=== PATIENT | male | born 1955 | race Caucasian/White ===

== ENCOUNTER → 2018-02-06 09:54 | Outpatient (CLI) | payer MEDICARE, SELFPAY ==
[2018-02-06 13:03] LABS: ALB/GLOB Ratio 1.1 RATIO (0.9-2.4); AST(SGOT) 37 U/L (15-37); Alanine Aminotransfer ALT/SGPT 36 U/L (16-61); Albumin, Serum 4.1 g/dL (3.2-5.0); Alkaline Phosphatase 85 U/L (45-117); Anion Gap 8 (5-15); BUN 19 mg/dL (7-18); Calcium,Total 8.9 mg/dL (8.5-10.1); Chloride 98 mmol/L (98-107); Creatinine, Serum 1.19 mg/dL (0.70-1.30); EST Glomerular Filtration Rate 65 mL/min (>60); Est Glom Filt Rate - Afr Amer 79 mL/min (>60); Globulin 3.6 g/dL (2.2-4.2); Glucose 94 mg/dL (74-106); Potassium 4.3 mmol/L (3.5-5.1); Protein, Total 7.7 g/dL (6.4-8.2); Sodium Level 137 mmol/L (136-145); Thyroid Stim Hormone (TSH) 0.62 uIU/mL (0.358-3.74)
[2018-02-06 13:08] LABS: Absolute Lymphocyte Count 1.45 X10^3/ul (0.83-4.51); Absolute Neutrophil Count 2.5 X10^3/uL (2.0-7.7); Basophil# 0.01 X10^3/uL; Basophil% 0.2 % (0-1); Eosinophil# 0.07 X10^3/uL; Eosinophils% 1.6 % (0-5); Hematocrit 43.5 % (40-54); Lymphocyte # 1.45 X10^3/ul (4.0); Lymphocyte % 33.3 % (19-41); Mean Corp Hgb Conc 32.2 g/gl (32-36); Mean Corpuscular Hgb 31.5 pg (27.0-32.0); Mean Corpuscular Volume 97.8 fL (80-94); Mean Platelet Vol. 9.7 fl (6.2-12.0); Monocyte# 0.35 X10^3/uL; Neutrophil # 2.47 X10^3/uL (2.7-7.7); Neutrophil % 56.7 % (47-70); Platelet Count 193 K/mm3 (150-450); RBC Distribution Width CV 12.2 % (11.6-14.6); RBC Distribution Width SD 43.3 fl (35.1-43.9); Red Blood Count 4.45 M/mm3 (4.6-6.2); White Blood Count 4.4 K/mm3 (4.4-11.0)
[2018-02-06 13:09] LABS: POSITIVE COUNT NO; POSITIVE DIFFERENTIAL NO; POSITIVE MORPHOLOGY NO
== END ==
PROVIDERS: Family Provider Family Medicine Geriatric Medicine; PCP Family Medicine Geriatric Medicine; Visit Provider Family Medicine Geriatric Medicine
DX: E11.9 Type 2 diabetes mellitus without complications (principal); I10 Essential (primary) hypertension
CPT/HCPCS: 36415; 80053; 84443; 85025

== ENCOUNTER → 2018-08-07 11:27 | Outpatient (CLI) | payer MEDICARE, SELFPAY ==
[2018-08-07 13:57] LABS: Vitamin D,25 Hydroxy 11.8 ng/mL (29.95-100.01)
[2018-08-07 14:04] LABS: ALB/GLOB Ratio 1.1 RATIO (0.9-2.4); AST(SGOT) 31 U/L (15-37); Alanine Aminotransfer ALT/SGPT 34 U/L (16-61); Albumin, Serum 3.8 g/dL (3.2-5.0); Alkaline Phosphatase 65 U/L (45-117); Anion Gap 8 (5-15); BUN 17 mg/dL (7-18); BUN/Creat Ratio 13.2 RATIO (10-20); Calcium,Total 8.4 mg/dL (8.5-10.1); Chloride 104 mmol/L (98-107); Creatinine, Serum 1.29 mg/dL (0.70-1.30); EST Glomerular Filtration Rate 59 mL/min (>60); Est Glom Filt Rate - Afr Amer 72 mL/min (>60); Globulin 3.4 g/dL (2.2-4.2); Glucose 107 mg/dL (74-106); PSA,Total - Annual Screen 2.25 ng/mL (0.00-4.00); Potassium 4.4 mmol/L (3.5-5.1); Protein, Total 7.2 g/dL (6.4-8.2); Sodium Level 140 mmol/L (136-145); Thyroid Stim Hormone (TSH) 0.81 uIU/mL (0.358-3.74)
[2018-08-07 14:17] LABS: Absolute Lymphocyte Count 1.41 X10^3/ul (0.83-4.51); Absolute Neutrophil Count 3.4 X10^3/uL (2.0-7.7); Basophil# 0.01 X10^3/uL; Basophil% 0.2 % (0-1); Eosinophil# 0.04 X10^3/uL; Eosinophils% 0.8 % (0-5); Hematocrit 40.6 % (40-54); Hemoglobin 12.9 g/dl (13.0-16.5); Lymphocyte # 1.41 X10^3/ul (4.0); Lymphocyte % 27.3 % (19-41); Mean Corp Hgb Conc 31.8 g/gl (32-36); Mean Corpuscular Hgb 30.9 pg (27.0-32.0); Mean Corpuscular Volume 97.4 fL (80-94); Mean Platelet Vol. 10.2 fl (6.2-12.0); Monocyte# 0.32 X10^3/uL; Monocyte% 6.2 % (0-10); Neutrophil # 3.37 X10^3/uL (2.7-7.7); Neutrophil % 65.3 % (47-70); POSITIVE COUNT NO; POSITIVE DIFFERENTIAL NO; POSITIVE MORPHOLOGY NO; Platelet Count 188 K/mm3 (150-450); RBC Distribution Width CV 12.5 % (11.6-14.6); RBC Distribution Width SD 43.9 fl (35.1-43.9); Red Blood Count 4.17 M/mm3 (4.6-6.2); White Blood Count 5.2 K/mm3 (4.4-11.0)
== END ==
PROVIDERS: Family Provider Family Medicine Geriatric Medicine; PCP Family Medicine Geriatric Medicine; Visit Provider Family Medicine Geriatric Medicine
DX: E11.9 Type 2 diabetes mellitus without complications (principal); E55.9 Vitamin D deficiency, unspecified; Z12.5 Encounter for screening for malignant neoplasm of prostate
CPT/HCPCS: 80053; 82306; 84153; 84443; 85025; G0103

== ENCOUNTER → 2019-02-12 09:10 | Outpatient (CLI) | payer MEDICARE, SELFPAY ==
[2019-02-12 13:12] LABS: Vitamin D,25 Hydroxy 23.7 ng/mL (29.95-100.01)
[2019-02-12 13:18] LABS: Absolute Lymphocyte Count 1.48 X10^3/ul (0.83-4.51); Absolute Neutrophil Count 2.8 X10^3/uL (2.0-7.7); Basophil# 0.01 X10^3/uL; Basophil% 0.2 % (0-1); Eosinophil# 0.05 X10^3/uL; Eosinophils% 1.1 % (0-5); Hemoglobin 14.8 g/dl (13.0-16.5); Lymphocyte # 1.48 X10^3/ul (4.0); Lymphocyte % 31.7 % (19-41); Mean Corp Hgb Conc 33.6 g/gl (32-36); Mean Corpuscular Hgb 31.4 pg (27.0-32.0); Mean Corpuscular Volume 93.2 fL (80-94); Mean Platelet Vol. 9.9 fl (6.2-12.0); Monocyte# 0.34 X10^3/uL; Monocyte% 7.3 % (0-10); Neutrophil # 2.78 X10^3/uL (2.7-7.7); Neutrophil % 59.5 % (47-70); Platelet Count 223 K/mm3 (150-450); RBC Distribution Width CV 12.3 % (11.6-14.6); RBC Distribution Width SD 40.9 fl (35.1-43.9); Red Blood Count 4.72 M/mm3 (4.6-6.2); White Blood Count 4.7 K/mm3 (4.4-11.0)
[2019-02-12 13:20] LABS: ALB/GLOB Ratio 1.1 RATIO (0.9-2.4); AST(SGOT) 36 U/L (15-37); Alanine Aminotransfer ALT/SGPT 28 U/L (16-61); Albumin, Serum 4.2 g/dL (3.2-5.0); Alkaline Phosphatase 71 U/L (45-117); Anion Gap 8 (5-15); BUN 23 mg/dL (7-18); BUN/Creat Ratio 21.1 RATIO (10-20); Calcium,Total 9.3 mg/dL (8.5-10.1); Chloride 103 mmol/L (98-107); Creatinine, Serum 1.09 mg/dL (0.70-1.30); EST Glomerular Filtration Rate 72 mL/min (>60); Est Glom Filt Rate - Afr Amer 87 mL/min (>60); Globulin 3.7 g/dL (2.2-4.2); Glucose 118 mg/dL (74-106); Potassium 4.4 mmol/L (3.5-5.1); Protein, Total 7.9 g/dL (6.4-8.2); Sodium Level 138 mmol/L (136-145); Thyroid Stim Hormone (TSH) 0.48 uIU/mL (0.358-3.74)
[2019-02-12 13:21] LABS: POSITIVE COUNT NO; POSITIVE DIFFERENTIAL NO; POSITIVE MORPHOLOGY NO
== END ==
PROVIDERS: Family Provider Family Medicine Geriatric Medicine; PCP Family Medicine Geriatric Medicine; Visit Provider Family Medicine Geriatric Medicine
DX: E11.9 Type 2 diabetes mellitus without complications (principal); I10 Essential (primary) hypertension; E55.9 Vitamin D deficiency, unspecified
CPT/HCPCS: 36415; 80053; 82306; 84443; 85025

== ENCOUNTER 2019-02-28 11:36 | Day surgery (SDC) | payer MEDICARE, SELFPAY ==
[2019-02-22 13:34] VITALS: BMI 23.6
[2019-02-28] VITALS (7 sets, daily range): BP systolic 140–190; BP diastolic 77–102; PULSE 60–93; RESP 16–18; TEMP 36.4–36.9; O2SAT 97–100; BMI 25.8
--- NOTE | 2019-02-28 09:09 | HP.PCM_ITS ---
Problem List (1) Left inguinal hernia Status: Acute History and Physical Date of Admission: 02/28/19 Intake Vital Signs 02/22/19 Height 5 ft 8 in 02/22/19 Weight: 155 lb 02/22/19 Body Mass Index (BMI) 23.6 02/22/19 Blood Pressure 149/80 H 02/22/19 Blood Pressure Location Rt brachial 02/22/19 Respiratory Rate 16 Intake Visit Reasons: Inguinal Hernia Telemetry Registered Nurse Required: No Is patient in pain?: Yes (left groin) Pain scale (1-10): 9 Allergies No Known Allergies Allergy (Unverified 02/22/19 13:35) Medications atorvastatin 40 mg tablet 40 mg PO DAILY 02/22/19 [History Confirmed 02/22/19] cholecalciferol (vitamin D3) 1,000 unit capsule 1,000 unit PO DAILY 02/22/19 [History] hydrocodone 5 mg-acetaminophen 325 mg tablet 1 tab PO Q6H PRN #14 tab 02/22/19 [Rx Confirmed 02/22/19] lisinopril 20 mg tablet 20 mg PO DAILY 02/22/19 [History Confirmed 02/22/19] metformin 500 mg tablet 500 mg PO BID 02/22/19 [History Confirmed 02/22/19] PFSH Medical History (Updated 02/22/19 @ 13:34 by Emmie Boyer) Anxiety (Acute) Depression (Acute) Diabetes (Acute) Heart attack (Acute) Kidney stones (Acute) Left inguinal hernia (Acute) Mild hypercholesterolemia (Acute) HTN (hypertension) (Chronic) Surgical History History of kidney surgery (Acute) S/P inguinal hernia repair (Acute) Social History (Updated 02/22/19 @ 15:37 by Tirso Klein MD) Smoking Status: Former smoker alcohol intake: never HPI HPI HPI: XOCHITL SUAREZ, is a 63 M who presents to the office today for HPI HPI Surgical H&P: Yes HPI: XOCHITL SUAREZ, is a 63 M who presents to the office today for left groin pain and bulging. Patient reports that he has had a bulging in his left groin for months but it is hurt even worse in the last few days since he bumped it into a corner of a desk. He says that when he lays flat the bulge does go away. He gives a 9 out of 10 pain. ROS General General: Yes weight change; no fatigue HEENT HEENT: No difficulty swallowing, eye injury or eye surgery Endo Endocrine: No thyroid disease or diabetes mellitus Skin Skin: No rash or changing moles Musc Musculoskeletal: No back problems, arthritis or rheumatoid arthritis Cardio Cardiovascular: Yes heart disease and high blood pressure; no murmur, pacemaker, atrial fibrillation, heart attack, heart stent, palpitations, shortness of breat with exertion or chest pain Psych Psychiatric: Yes depression and anxiety Resp Respiratory: No shortness of breath, No sleep apnea, No cough, No COPD, Yes asthma, No emphysema, No wheezing Gastro Gastrointestinal: No abdominal pain, No nausea or vomiting, No diarrhea, No constipation, No blood in stool, No acid reflux, No hemorrhoids, No ulcers, No gallbladder problem, No black,tarry stools Adilson Hematologic: No blood thinners Neuro Neurologic: Yes system reviewed and no additional complaints, except as docu Exam Const General: cooperative Orientation: alert, oriented x3 HENMT Head: normal to inspection Ears: hearing grossly normal bilaterally Eyes General: appearance normal, both eyes and all related structures Visual Slater: normal visual slater by confrontation Neck Neck: normal visual inspection Chest Chest palpation & inspection: normal inspection of the chest Resp Effort & Inspection: normal respiratory effort Auscultation: clear to auscultation bilaterally Cardio Rate: regular rate Rhythm: regular rhythm Heart Sounds: no murmurs GI Inspection: non-distended Palpation: soft, hernia indirect inguinal, nontender Musc Cervical Spine: normal cervical lordosis, cervical ROM normal Skin General: no rashes or lesions noted Neuro General: alert, oriented x3 Cranial Nerves: CN's II-XI intact bilaterally Cognition: normal cognition Extrem General: normal to inspection, full ROM Psych Appearance: grossly normal Affect: normal affect Assessment & Plan Problems 1. Left inguinal hernia K40.90 Plan The patient has left groin swelling and a reducible but tender left inguinal hernia. I offer the patient and discussed both open and robotic assisted laparoscopic hernia repair. The patient prefers the laparoscopic approach. I discussed the risks including but not limited to bleeding, infection, recurrence of hernia, chronic groin pain, spermatic cord injury. Patient understands risks and is willing to proceed with surgery. I also gave the patient a short course of pain medication until surgery. Tirso Klein MD Pager: [facility] [address] [place] [address], [address] [place] [address] Office:
--- NOTE | 2019-02-28 11:46 | EKG12_ITS ---
Test Reason : PRE OP Blood Pressure : / mmHG Vent. Rate : 060 BPM Atrial Rate : 060 BPM P-R Int : 162 ms QRS Dur : 082 ms QT Int : 450 ms P-R-T Axes : 079 011 048 degrees QTc Int : 450 ms Sinus rhythm with marked sinus arrhythmia Otherwise normal ECG When compared with ECG of 04-FEB-2008 15:20, No significant change was found Confirmed by MARIA LUISA MUÑOZ ([id number]), writer editor HAROON KAPLAN ([id number]) on 03/02/2019 8:53:12 AM Referred By: Tirso Klein Confirmed By:MARIA LUISA MUÑOZ
[2019-02-28 12:11] LABS: Hematocrit 41.6 % (40-54); Hemoglobin 13.9 g/dL (13.0-16.5); Mean Corp Hgb Conc 33.4 g/dL (32-36); Mean Corpuscular Hgb 31.1 pg (27.0-32.0); Mean Corpuscular Volume 93.1 fL (80-94); Platelet Count 188 K/mm3 (150-450); RBC Distribution Width CV 11.6 % (11.6-14.6); RBC Distribution Width SD 39.7 fl (35.1-43.9); Red Blood Count 4.47 M/mm3 (4.6-6.2); White Blood Count 5.8 K/mm3 (4.4-11.0)
[2019-02-28 12:23] LABS: Anion Gap 2 (5-15); BUN 18 mg/dL (7-18); BUN/Creat Ratio 16.2 RATIO (10-20); Calcium,Total 9.2 mg/dL (8.5-10.1); Chloride 105 mmol/L (98-107); Creatinine, Serum 1.11 mg/dL (0.70-1.30); EST Glomerular Filtration Rate 71 mL/min (>60); Est Glom Filt Rate - Afr Amer 85 mL/min (>60); Estimated Creatinine Clearance 62.03 ml/min; Glucose 104 mg/dL (74-106); Potassium 3.8 mmol/L (3.5-5.1); Sodium Level 139 mmol/L (136-145)
[2019-02-28 12:30] LABS: Bedside Glucose 95 mg/dL (70-110)
[2019-02-28 13:06] LABS: Hemoglobin A1c 6.5 % (4.2-6.3)
[2019-02-28] MEDS: Cefazolin 2 GM in 0.9% Normal Saline 100 ML IV (13:33)
[2019-02-28] MEDS: Bupivacaine Mpf 0.5% 30 ML VIAL (14:45)
--- NOTE | 2019-02-28 15:04 | OP.PCM_ITS ---
Problem List (1) Left inguinal hernia Status: Acute Report of Operation Date of Procedure: 02/28/19 Pre-Operative Diagnosis: Left inguinal hernia Post-Operative Diagnosis: Left inguinal hernia Surgery/Procedure Performed:: Robotic assisted laparoscopic left inguinal hernia repair with mesh Description of Surgical Findings:: She had a direct and indirect left inguinal defect. There was evidence of prior right plug repair with scarring on the right. Description of Procedure: Patient was brought back to the operating room and general anesthesia was induced. The abdomen was prepped and draped in usual sterile fashion and a midline incision was created above the umbilicus. The fascia was elevated and a Veress needle was placed into the abdomen and a drop test was performed. The abdomen was then insufflated to 15 mmHg. The Veress needle was removed and the camera port was placed into the incision. The camera was then placed into the abdomen. There were no injuries from injury. The groins were inspected and the patient had evidence of a prior right hernia repair. The patient had a direct and indirect defect on the left side. Next on the right lateral sidewall and left lateral sidewall 8 mm ports were placed under direct visualization. Patient was then placed in the steep Trendelenburg position and the robot was docked. Next using electrocautery and scissors a peritoneal incision was made dissection was carried inferior until the hernia sac in the direct position was identified and it was reduced into the abdomen. Dissection was carried laterally until the indirect defect was also reduced into the abdomen. Dissection was carried posteriorly until enough of a pocket was created for the mesh. Next a pro-priming mixture carrier mesh was placed into the abdomen and into the left groin. It was unfolded covering both defects completely with overlap. Next the peritoneum was reapproximated using running 3-0V lock absorbable suture. There was a small defect in the peritoneum which was closed with interrupted 4-0 Vicryl sutures. The mesh was completely covered at the end of the case. It was sitting well with no folding. The robot was then undocked and the patient was placed in flat position. The ports were removed under direct visualization the air was allowed to escape from the abdomen. The incisions were closed with interrupted 4-0 Monocryl sutures and anesthetized with Marcaine. Steri-Strips and bandages were then applied. The scrotum was checked at the end the case and contain both testicles. Patient was awoken and taken to PACU in stable condition. Grafts/Implants Used: Pro-priming mixture carrier mesh - Admit VTE Documentation VTE Mechan Device Prophylaxis: SCD's
[2019-02-28 15:16] LABS: Bedside Glucose 141 mg/dL (70-110)
--- NOTE | 2019-02-28 15:27 | PCM.DC.HER ---
Discharge Diet: Light diet - advance as tolerated Discharge Activity: Return to Normal Activity, May Not Drive - for 2-3 days or while taking narcotic pain meds., May Shower - with the bandage in place 1-2 days after surgery. Lifting Restrictions: 20 pounds for 8 weeks. Additional Activity Instructions:: Climbing stairs is fine, walking is encouraged. Sitting in bed may be uncomfortable. Sitting up using your lateral muscles (sitting up sideways) is usually more comfortable. Do not drive, work heavy equipment of sign legal documents for 24 hours. If your hernia repair was an ingunial repair, you may have scrotal swelling, an ice pack and/or athletic support can provide more comfort. Pain medications may cause nausea, you should typically eat light foods as you take your pain medications. Pain medications may also cause constipation. If you have difficulty with this, discuss with your doctor. Call your doctor if your incision/area has: Continuous Slow Oozing, Sudden Increased Bleeding, Increased Pain/ Swelling, Increased Redness, Foul Smelling Discharge Call your doctor if you observe: Fever of 101 or Higher Suture Line Care: Avoid Pulling/Pushing, Avoid Pinching/Bending Change Dressing in (Days):: 3 - Leave steri-strips for 1 week. May protect with a guaze bandaid. Cleanse incision/area with: Keep Dressing Clean & Dry Allergies/Adverse Reactions: Allergies No Known Allergies Allergy (Unverified 02/22/19 13:35) Medications to take at Discharge lisinopril 20 mg tablet 10 mg PO DAILY 02/22/19 metformin 500 mg tablet 500 mg PO BID 02/22/19 Oxycodone HCl/Acetaminophen [Percocet 5/325] 1 - 2 tab PO Q4H PRN PRN 4 Days #20 tab 02/28/19 The following prescriptions were given: Oxycodone HCl/Acetaminophen [Percocet 5/325] 1 - 2 tab PO Q4H PRN PRN 4 Days #20 tab PRN Reason: Pain Transmission Status: Sent to [facility] Primary Care Physician: Casey Beckman Chi, MD [Primary Care Provider] - Test Results: Test results from this visit will be discussed in further detail at your follow-up appointment, if applicable. Please Follow Up With: Tirso Klein MD When: call to make 2 week follow up appt [phone]
[2019-02-28] MEDS: Acetaminophen 325 MG Tablet PO (15:47)
[2019-02-28] MEDS: oxyCODONE 5 MG Tablet PO (15:47)
== END 2019-02-28 17:15 | disposition home or self-care (01) ==
LOC: SDC 11:38 → AC 11:39
PROVIDERS: Anesthesiology; Family Provider Family Medicine Geriatric Medicine; PCP Family Medicine Geriatric Medicine; Referring Provider Surgery; Visit Provider Surgery
PROC: 0YQ64ZZ Repair Left Inguinal Region, Percutaneous Endoscopic Approach (ICD-10-PCS; CPT 49650; principal; 2019-02-28 13:20)
DX: K40.90 Unilateral inguinal hernia, without obstruction or gangrene, not specified as recurrent (principal); I10 Essential (primary) hypertension; F32.9 Major depressive disorder, single episode, unspecified; F41.9 Anxiety disorder, unspecified; E11.9 Type 2 diabetes mellitus without complications; Z79.899 Other long term (current) drug therapy; Z87.891 Personal history of nicotine dependence
CPT/HCPCS: 49650; 80048; 82962; 83036; 85027; 93005; J7120; J0330; J2405

== ENCOUNTER 2020-07-27 13:26 | Emergency (ER) | payer MEDICARE, MEDICAID, SELFPAY ==
[2019-02-28 11:56] VITALS: BMI 25.8
[2020-07-27 13:27] VITALS: BP 140/91; PULSE 89; RESP 16; TEMP 36.6; O2SAT 93; BMI 29.7
--- NOTE | 2020-07-27 13:41 | CT_ITS ---
STUDY: CT BRAIN WITHOUT CONTRAST REASON FOR EXAM: Male, 65 years old. Altered mental status RADIATION DOSAGE (If Supplied By Facility): CTDIvol = ( 44.99 ) mGy, DLP = ( 829.85 ) mGycm TECHNIQUE: Transaxial CT imaging of the brain was performed without administration of intravenous contrast material. Individualized dose optimization techniques were used for this CT. COMPARISON: No relevant priors. FINDINGS: No evidence for shift of midline structures, mass effect or compression of ventricles noted. No acute intracranial hemorrhage seen. There is a low-attenuation focus in the right frontal lobe possibly a chronic infarct. Encephalomalacia and gliosis in the right temporal lobe seen likely prior traumatic or ischemic injury. No significant shift of midline structures. No evidence for acute intracranial hemorrhage. The basal cisterns are patent. No evidence for hydrocephalus. The calvarium is intact. IMPRESSION: No evidence for acute intracranial hemorrhage, mass effect or acute large territory infarcts. Electronically Signed: Con Armas, at 14:16 EST Tel , Service support , CT/Brain/Head without Contrast
--- NOTE | 2020-07-27 13:42 | EKG12_ITS ---
Test Reason : Blood Pressure : / mmHG Vent. Rate : 075 BPM Atrial Rate : 075 BPM P-R Int : 156 ms QRS Dur : 084 ms QT Int : 422 ms P-R-T Axes : 063 -06 024 degrees QTc Int : 471 ms Normal sinus rhythm Nonspecific T wave abnormality Prolonged QT Abnormal ECG When compared with ECG of 28-FEB-2019 11:54, No significant change was found Confirmed by LEESA JOLLY, JAMAAL ([id number]), food editor SHIVANI SAXENA ([id number]) on 08/18/2020 11:25:16 AM Referred By: Confirmed By:KELLY LANDERS MD
--- NOTE | 2020-07-27 13:43 | ED.VIS.STROK ---
History of Present Illness Informant: Patient, Family Onset: Days - 4 days Context: Gradual Onset Timing: Continuous Quality and Location: Left Facial Droop Onset: sudden 4 days ago Current Severity: Severe Maximum Severity: Severe Worsened by: nothing Relieved by: nothing Associated Symptoms: Negative for: Headache, Nausea, Vomiting, Chest Pain Narrative: 65-year-old male brought in by his son for a left-sided facial droop and confusion. Patient denies any significant past medical history. Son states that he last saw the patient 4 days ago patient had a facial droop. He went back over to check on him today facial droop was still present and he was having trouble getting dressed and seemed confused to the son which prompted him to bring the patient to the emergency department for evaluation. The patient at this time is alert and oriented x3 he does admit has been having trouble doing some of his activities of daily living and he has had a consistent left-sided facial droop for 4 days. No visual changes or loss of vision. No difficulties with speech. No weakness or paresthesias. No chest pain or shortness of breath. He does admit to frequent falls over the last several days as well. Denies alcohol or drug use. Denies any fevers chills or cough Prior similar symptoms: No Recent Illness/Hospitalization: No <Tirso Middleton - Last Filed: 07/27/20 15:19> <Murray Padilla - Last Filed: 07/27/20 18:41> Chief Complaint: Neuro S/Sx Past Medical History Prior records reviewed: Yes Past Medical History: None Surgical History: no surgical history Lives: Alone Smoking Status: Former smoker Alcohol: None Drugs: None <Tirso Middleton - Last Filed: 07/27/20 15:19> <Murray Padilla - Last Filed: 07/27/20 18:41> - Allergies and Home Meds Allergies/Adverse Reactions: Allergies No Known Allergies Allergy (Verified 07/27/20 13:29) Primary Care Physician: Casey Beckman Chi, MD [Primary Care Provider] - 1 Day Review of Systems All systems negative except as indicated General: Denies: Chills, Fever, Sweats Eyes: Denies: Visual changes - bilaterally, Diplopia ENT: Denies: Rhinorrhea, Sore throat Cardiovascular: Denies: Chest pain, Palpitations Respiratory: Denies: Dyspnea, Cough, Dyspnea on exertion Gastrointestinal: Denies: Abdominal pain, Nausea, Vomiting, Diarrhea, Melena, Hematochezia Genitourinary: Denies: Dysuria, Hematuria, Frequency Musculoskeletal: Denies: Back pain, Extremity Pain Skin: Denies: Rash, Wounds Neurological: Reports: - - Facial droop left-sided. Denies: Headache, Weakness, Parasthesia, Numbness <Tirso Middleton - Last Filed: 07/27/20 15:19> STROKE Vital Signs/Narrative: Vital Signs Temp Pulse Resp BP Pulse Ox 07/27/20 13:27 97.8 F 89 16 140/91 H 93 Inital Vital Signs reviewed: Yes General: Well nourished, Well developed Head: Normocephalic, Atraumatic Eyes: Perrl, EOMI ENT: Moist mucous membranes, No rhinorrhea Neck: Supple, Nontender Cardiovascular: Regular rate, Regular rhythm, No murmurs Respiratory: No distress, CTA bilaterally, Chest nontender Abdomen: Soft, Nontender, Nondistended, Normal bowel sounds Back: Nontender, Normal Inspection Extremities: Nontender, No edema Skin: Normal color, No rash Neurological: Alert, Oriented x3, Normal Strength, Normal Sensation, Normal Gait, Recall 3/3, Left side facial droop Psychological: Normal affect, Normal Mood <Tirso Middleton - Last Filed: 07/27/20 15:19> Vital Signs/Narrative: Vital Signs Pulse Resp BP Pulse Ox 07/27/20 15:14 67 15 116/68 95 <Murray Padilla - Last Filed: 07/27/20 18:41> Diagnostic/Tx/Re-eval - Rhythm Strip Rhythm Strip: Sinus Rhythm Rate: 76 Ectopy: None - EKG Initial EKG Interpretation: Sinus Rhythm, No Acute Injury Pattern Prior: No Prior - Medical Decision Making Stroke Team Activated: No NIH stroke scale on arrival was 1 for the left sided facial droop. Patient's vital signs were stable. His EKG was sinus rhythm. No signs of ischemia. Patient's laboratory work-up was unremarkable. Urinalysis was unremarkable. CT brain showed no acute abnormalities. Repeat exam the patient's son providing further history states the patient has been taking handfuls of Tylenol PM at home and he thinks it could be contributing to his symptoms. We did perform a Tylenol level that was negative his alcohol level and drug screen were only remarkable for positive THC. His liver enzymes were normal. Patient on repeat exam still has the facial droop. We discussed with him that we would like to admit him to the hospital for an MRI and further work-up. He refuses. At this time he is alert and oriented x4. He has the capacity to make this decision. He understands the risks and benefits of this decision. We encouraged him to return at any time otherwise follow-up with his primary care physician Dr. Beckman tomorrow. He signed out AGAINST MEDICAL ADVICE <Tirso Middleton - Last Filed: 07/27/20 15:19> - Medical Decision Making Patient was individually seen and examined by myself. Agree with above work-up and plan. Patient's EKG interpreted by myself shows normal sinus rhythm without ischemic change. Lab work does show slight dehydration. Risk benefits of patient signing out were discussed at length by myself and the PA. Patient refuses to stay in the hospital because he wants to take care of his dog. He understands the risks of signing out. He understands benefits of being admitted to the hospital for further evaluation with MRI. He has refused to stay so he will be discharged home after signing paperwork AGAINST MEDICAL ADVICE. Patient was encouraged to return at any time for repeat evaluation. <Murray Padilla - Last Filed: 07/27/20 18:41> ED Disposition <Tirso Middleton - Last Filed: 07/27/20 15:19> <Murray Padilla - Last Filed: 07/27/20 18:41> - Plan for ED Patient: Disposition: Against Medical Advice Diagnosis: Facial droop Instructions: ED Weakness (Uncertain Cause) Referrals: Casey Beckman Chi, MD [Primary Care Provider] - 1 Day
[2020-07-27 13:49] LABS: Absolute Lymphocyte Count 1.54 X10^3/uL (0.83-4.51); Absolute Neutrophil Count 2.7 X10^3/uL (2.0-7.7); Basophil# 0.03 X10^3/uL; Basophil% 0.6 % (0-1); Eosinophil# 0.05 X10^3/uL; Eosinophils% 1.1 % (0-5); Hematocrit 42.5 % (40-54); Hemoglobin 14.1 g/dL (13.0-16.5); Lymphocyte # 1.54 X10^3/ul (4.0); Lymphocyte % 32.6 % (19-41); Mean Corp Hgb Conc 33.2 g/dL (32-36); Mean Corpuscular Hgb 31.4 pg (27.0-32.0); Mean Corpuscular Volume 94.7 fL (80-94); Mean Platelet Vol. 9.2 fl (6.2-12.0); Monocyte# 0.38 X10^3/uL; NRBC Flagged by Analyzer 0 % (0-5); Neutrophil # 2.71 X10^3/uL (2.7-7.7); Neutrophil % 57.3 % (47-70); Platelet Count 212 K/mm3 (150-450); RBC Distribution Width CV 11.8 % (11.6-14.6); RBC Distribution Width SD 40.9 fl (35.1-43.9); Red Blood Count 4.49 M/mm3 (4.6-6.2); White Blood Count 4.7 K/mm3 (4.4-11.0)
[2020-07-27 13:53] VITALS: BMI 29.7
[2020-07-27 13:58] LABS: International Normalized Ratio 0.9
[2020-07-27 14:03] LABS: ALB/GLOB Ratio 1.3 RATIO (0.9-2.4); AST(SGOT) 30 U/L (15-37); Alanine Aminotransfer ALT/SGPT 21 U/L (16-61); Albumin, Serum 4.1 g/dL (3.2-5.0); Alkaline Phosphatase 79 U/L (45-117); Anion Gap 7 (5-15); BUN 25 mg/dL (7-18); BUN/Creat Ratio 16.8 RATIO (10-20); Calcium,Total 8.6 mg/dL (8.5-10.1); Chloride 105 mmol/L (98-107); Creatinine, Serum 1.49 mg/dL (0.70-1.30); EST Glomerular Filtration Rate 50 mL/min (>60); Est Glom Filt Rate - Afr Amer 61 mL/min (>60); Estimated Creatinine Clearance 44.98 ml/min; Globulin 3.1 g/dL (2.2-4.2); Glucose 180 mg/dL (74-106); Potassium 3.9 mmol/L (3.5-5.1); Protein, Total 7.2 g/dL (6.4-8.2); Sodium Level 139 mmol/L (136-145)
[2020-07-27] MEDS: 0.9% Normal Saline 1,000 ML 999 ML IV (14:20)
[2020-07-27 14:26] LABS: Mucous, Urine 0 SEEN /hpf (<or=2+); Red Blood Cells-Urine 0 SEEN /hpf (0-5); Squamous Epithelial Cells - UA 0 SEEN /hpf (0-5)
[2020-07-27 14:32] LABS: Color, Urine Straw (Yellow); Glucose, Dipstick Normal (Normal); Ketone-Dipstick Negative (Negative); Leukocyte Esterase-Dipstick Negative /ul (Negative); Nitrite-Dipstick Negative (Negative); Occult Blood-Urine Negative /ul (Negative); Protein-Dipstick 15 mg/dl (Negative); Specific Gravity, Urine 1.015 (1.002-1.030); Urine Bilirubin Dipstick Negative (Negative); Urine Clarity Clear (Clear); Urine Urobilinogen Normal (Normal); Urine pH 6.5 (5.0 - 8.0)
[2020-07-27 14:38] LABS: Alcohol, Blood (Medical)-Serum < 3.0 mg/dL
[2020-07-27 14:38] LABS: White Blood Cells 0-5 SEEN /hpf (0-5)
[2020-07-27 14:39] LABS: Bacteria RARE /hpf (None Seen)
[2020-07-27 14:46] LABS: Amphetamine Urine VISTA NEGATIVE (<1000 ng/mL); Barbiturate Urine VISTA NEGATIVE (< 200 ng/mL); Benzodiazepine Urine VISTA NEGATIVE (< 200 ng/mL); Cocaine Urine VISTA NEGATIVE (< 300 ng/mL); Ecstacy Urine VISTA NEGATIVE (< 500 ng/mL); Methadone Urine VISTA NEGATIVE (< 300 ng/mL); PCP Urine VISTA NEGATIVE (< 25 ng/mL); THC Urine VISTA POSITIVE (< 50 ng/mL); Vista UDS pH Range 6
[2020-07-27 14:59] LABS: Acetaminophen (Tylenol) Level < 2.0 ug/mL (10.0-30.0)
[2020-07-27 15:14] VITALS: BP 116/68; PULSE 67; RESP 15; O2SAT 95
== END 2020-07-27 15:39 | disposition left against medical advice (07) ==
PROVIDERS: Emergency Provider Physician Assistant Medical; PCP Family Medicine Geriatric Medicine
DX: R29.810 Facial weakness (principal); Z87.891 Personal history of nicotine dependence; R41.0 Disorientation, unspecified; Z79.899 Other long term (current) drug therapy; R29.6 Repeated falls
CPT/HCPCS: 70450; 80053; 80307; 80320; 80329; 81001; 85025; 85610; 85730; 93005; 96360; 99284; J7030; A4216; G0480

== ENCOUNTER 2022-03-18 14:02 | Emergency (ER) | payer MEDICARE, SELFPAY ==
[2022-03-18 14:03] VITALS: BP 184/104; PULSE 83; RESP 15; TEMP 35.8; O2SAT 100; BMI 26.6
--- NOTE | 2022-03-18 14:43 | CM.ED ---
Social Work Note Reason for Referral: No PCP SW reviewed chart, pt has no PCP listed. SW in to speak with pt. Pt has guest present in room. Pt gave permission for this worker to speak to him in front of his guest. Pt confirms he has no PCP. SW provided pt/pt's guest with [facility] Healthcare Directory/PCP list. Zenia Gonsalves [employer]CH[employer]IC, [employer] C[employer] WORKER
--- NOTE | 2022-03-18 15:08 | CT_ITS ---
STUDY: CT ABDOMEN AND PELVIS WITH CONTRAST REASON FOR EXAM: Male, 66 years old. abd pain RADIATION DOSAGE (If Supplied By Facility): CTDIvol = ( 16.18 ) mGy, DLP = ( 975.08 ) mGycm TECHNIQUE: Transaxial images were obtained from the dome of the diaphragm to the symphysis pubis without oral contrast. IV 100mL [id number]-300 was administered. Sagittal and coronal images were reconstructed. Individualized dose optimization techniques were used for this CT. COMPARISON: None. FINDINGS: The visualized lung bases are unremarkable. The visualized portions of the heart are within normal limits. Nonspecific fatty infiltrated liver without mass or bile duct dilatation.. Normal gallbladder and extrahepatic biliary system. Normal spleen. Normal pancreas. Normal bilateral adrenal glands. Multifocal cortical scarring kidneys bilaterally likely due to chronic inflammatory disease worse in left kidney which is atrophic measuring approximately 8.5 cm in length.. Tiny nonobstructing calculus in each kidney. No evidence for renal obstruction or mass There is thickening of the villa of gastric fundus which may be consistent with nonspecific gastritis.. Neoplasm not entirely excluded. Mild nonspecific ileus pattern. There is concentric thickening of the villa of the terminal ileum and narrowing of the lumen which may be consistent with nonspecific inflammatory bowel disease possibly Crohn''s.. No evidence for acute appendicitis Mild atherosclerotic changes of the aorta without evidence for aneurysm Normal inferior vena cava. Normal retroperitoneum. Normal urinary bladder. Nonspecific enlargement of prostate. Bilateral fat-containing inguinal hernias are noted.. There is soft tissue density in the right inguinal canal containing multiple tiny calcifications possibly spermatic cord. Lumbar spine demonstrates moderate spondylosis. Ultrasound of the right groin would be useful for further evaluation if clinically indicated. CT/Abdomen/Pelvis W IV Cont ONLY IMPRESSION: Nonspecific thickening of the gastric fundus possibly due to inflammatory changes as there is also concentric thickening of the villa of the terminal ileum. Endoscopy would be useful for more definitive evaluation if indicated. Mild chronic scarring of the kidneys bilaterally more severe in the left kidney which is relatively small likely due to old inflammatory disease. Tiny bilateral nonobstructing renal calculi. Other findings as above Electronically Signed: Geovanny Cool MD at 16:49 EDT ,
[2022-03-18] MEDS: Morphine 4 MG/ML Syringe IV (15:18)
[2022-03-18] MEDS: 0.9% Normal Saline 1,000 ML 1000 ML IV (15:18)
[2022-03-18] MEDS: Ondansetron 4 MG/2 ML Vial IV (15:18)
[2022-03-18 15:20] LABS: Absolute Lymphocyte Count 1.56 X10^3/uL (0.83-4.51); Absolute Neutrophil Count 4.7 X10^3/uL (2.0-7.7); Basophil# 0.01 X10^3/uL; Basophil% 0.1 % (0-1); Eosinophil# 0.04 X10^3/uL; Eosinophils% 0.6 % (0-5); Hematocrit 40.5 % (40-54); Hemoglobin 13.4 g/dL (13.0-16.5); Lymphocyte # 1.56 X10^3/ul (0.83-4.51); Mean Corp Hgb Conc 33.1 g/dL (32-36); Mean Corpuscular Hgb 28.2 pg (27.0-32.0); Mean Corpuscular Volume 85.3 fL (80-94); Mean Platelet Vol. 9.3 fl (6.2-12.0); Monocyte% 5.9 % (0-10); NRBC Flagged by Analyzer 0 % (0-5); Neutrophil # 4.74 X10^3/uL (2.7-7.7); Platelet Count 368 K/mm3 (150-450); RBC Distribution Width CV 11.9 % (11.6-14.6); Red Blood Count 4.75 M/mm3 (4.6-6.2); White Blood Count 6.8 K/mm3 (4.4-11.0)
--- NOTE | 2022-03-18 15:20 | ED.VIS.GI ---
HPI HPI - GI History of Present Illness Chief Complaint: Abd Pain Informant: patient and family Narrative Narrative: Presenting here with son for evaluation of 2-year history of mid abdominal pain. Has not had this evaluated. Lives in [place]. Per son does not have mode of transportation or walking distance to the hospital. Son reports he does see him daily. Patient reports been using ibuprofen which does transiently help symptoms. Reports constipation with bowel movements every 2 days states did have one this morning. States previously had blood in the stools however none recently. Colonoscopy about 3 years ago. States he currently is not taking any medications has not seen a PCP in a while. Records note previously on lisinopril metformin. No abdominal surgery history. No urinary symptoms. No fevers however admits to chills. No cough. Denies any allergies. [facility] Medical History Anxiety Depression Diabetes Heart attack HTN (hypertension) Kidney stones Left inguinal hernia Mild hypercholesterolemia Home Medications lisinopril 20 mg tablet 10 mg PO DAILY 02/22/19 [History Last Taken Unknown] metformin 500 mg tablet 500 mg PO BID 02/22/19 [History Last Taken Unknown] omeprazole 40 mg capsule,delayed release 40 mg PO DAILY #30 caps 03/18/22 [Rx Last Taken Unknown] sucralfate 1 gram tablet (Carafate) 1 g PO BID #60 tabs 03/18/22 [Rx Last Taken Unknown] Allergy/AdvReac Type Severity Reaction Status Date / Time No Known Allergies Allergy Verified 03/18/22 14:03 Surgical History (Updated 02/28/19 @ 09:[address] Tirso Klein MD) History of kidney surgery S/P inguinal hernia repair Social History (Updated 02/22/19 @ 15:[address] Tirso Klein MD) Smoking Status: Unknown if ever smoked alcohol intake: never ROS ROS ED Constitutional Constitutional ED: Denies chills, fever(s) or sweats Eyes Eyes: Denies change in vision ENT ENT ED: Denies dysphagia or sore throat Cardiovascular Cardiovascular: Denies chest pain, leg edema, palpitations or racing heartbeat Respiratory/Chest Respiratory/Chest: Denies cough, dyspnea or dyspnea on exertion Gastrointestinal Gastrointestinal: Reports abdominal pain; Denies diarrhea, nausea or vomiting Genitourinary Genitourinary ED: Denies dysuria, hematuria or urinary frequency Musculoskeletal Musculoskeletal: Denies back pain, extremity pain or neck pain Integumentary Denies rash or wounds Neurologic Neurologic: Denies headache(s), paresthesias or weakness EXAM Physical Exam Const Vital Signs: 03/18/22 14:03 03/18/22 16:08 03/18/22 17:45 Temperature 96.4 F L Temperature Source Temporal Pulse Rate 83 89 97 Respiratory Rate 15 15 16 Blood Pressure 184/104 H 162/102 H Blood Pressure Mean 130 Pulse Ox 100 99 98 Oxygen Delivery Method Room Air Room Air Positive well nourished and well developed General Appearance ED: well developed and NAD HEENT Reports moist mucous membranes normocephalic and atraumatic Eyes PERRL, EOMs intact bilaterally and conjunctivae normal General Eye ED: Yes normal appearance of both eyes Neck no lymphadenopathy and supple General: Negative for tenderness Chest Wall Chest: Negative for tenderness Resp normal respiratory effort and normal air movement Effort and Inspection: symmetric chest movement; Negative for respiratory distress Cardio regular rate, regular rhythm and no murmurs Peripheral Pulses: pulses 2+ throughout GI normal to inspection, nondistended, normoactive bowel sounds GI Narrative: Epigastric and mid abdominal tenderness on evaluation. Negative Abdi's McBurney's tenderness. Palpation: Negative for guarding or rebound tenderness present Back/Spine no CVA tenderness and no thoracic nor lumbar tenderness Extremity normal to inspection General Extremety ED: Negative for edema or tenderness General Extremity: Negative for edema Neuro oriented x3 and no sensory deficits noted Sensorium / Orientation: awake and alert Skin no rashes or lesions noted and no wounds MDM MDM MDM Narrative Medical decision making narrative: Patient tender epigastrium. Is been ongoing for 2 years with no evaluation. Laboratory studies all normal hemoglobin 13.4. CT scan obtained concerning for thickening gastrum along with thickened terminal ileum. He was treated morphine Zofran Pepcid with improving symptoms. Discussed avoiding his NSAIDs, he can use Tylenol as needed. Prescription for Carafate and omeprazole written. He is given follow-up with GI as an outpatient. He has not seen his PCP for at least 3 years. History of hypertension diabetes and hyperlipidemia. Discussed the need for follow-up with his PCP to restart his medications. His son states he is available to transport. All questions answered. Lab Data Attestation: I reviewed the patient's lab results. Labs: Laboratory Results - last 24 hr 03/18/22 03/18/22 14:19 14:19 WBC 6.8 RBC 4.75 Hgb 13.4 Hct 40.5 MCV 85.3 MCH 28.2 MCHC 33.1 RDW Std Deviation 37.0 RDW Coeff of [place] 11.9 Plt Count 368 MPV 9.3 Immature Gran % (Auto) 0.400 Neut % (Auto) 70.0 Lymph % (Auto) 23.0 Armstrong % (Auto) 5.9 Eos % (Auto) 0.6 Baso % (Auto) 0.1 Absolute Neuts (auto) 4.7 Absolute Lymphs (auto) 1.56 Nucleated RBC % 0 Sodium 136 Potassium 3.9 Chloride 99 Carbon Dioxide 30.0 Anion Gap 7 BUN 21 H Creatinine 0.97 Estim Creat Clear Calc 68.14 Est GFR (MDRD) Af Amer 99 Est GFR (MDRD) Non-Af 82 BUN/Creatinine Ratio 21.7 H Glucose 224 H Calcium 10.3 H Total Bilirubin 0.30 AST 13 L ALT 11 L Alkaline Phosphatase 98 Total Protein 7.8 Albumin 3.6 Globulin 4.2 Albumin/Globulin Ratio 0.9 Lipase 276 Radiography Diagnostic Testing: Clinical Impression(s) from Imaging Studies Abdomen/Pelvis CT 03/18/22 15:08 IMPRESSION: Nonspecific thickening of the gastric fundus possibly due to inflammatory changes as there is also concentric thickening of the villa of the terminal ileum. Endoscopy would be useful for more definitive evaluation if indicated. Mild chronic scarring of the kidneys bilaterally more severe in the left kidney which is relatively small likely due to old inflammatory disease. Tiny bilateral nonobstructing renal calculi. Other findings as above Electronically Signed: Geovanny Cool MD at 16:49 EDT Reading Location ID and State: [facility] / [place] , Service support , Discharge Plan Triage Chief Complaint: Abd Pain ED Provider: Wisam Goncalves Dx/Rx/DC Orders Clinical Impression: Gastritis, Gastric wall thickening, History of hypertension Instructions: ED Gastritis (Adult) Prescriptions: New sucralfate [Carafate] 1 gram tablet 1 g PO BID Qty: 60 0RF omeprazole 40 mg capsule,delayed release(DR/EC) 40 mg PO DAILY Qty: 30 0RF No Action metformin 500 mg tablet 500 mg PO BID lisinopril 20 mg tablet 10 mg PO DAILY Primary Care Provider: Care Physician,No Primary Referrals: Deejay Claudio DO [Med Staff - Active Staff] - 1 Week Casey Beckman Chi, MD [Med Staff - Active Staff] - 3-5 Days Care Physician,No Primary [Primary Care Provider] - Activity Restrictions/Additional Instructions: Thickened gastrum and terminal ileum thickening on CT. Avoid your ibuprofen. Take medications as prescribed follow-up with Dr. Claudio GI for outpatient evaluation and further management. Follow-up with your PCP Dr. Beckman to get back on medication for blood pressure and diabetes Disposition Disposition: Home, Self Care Discharge Date/Time: 03/18/22 17:45
[2022-03-18 15:36] LABS: ALB/GLOB Ratio 0.9 RATIO (0.9-2.4); AST(SGOT) 13 U/L (15-37); Alanine Aminotransfer ALT/SGPT 11 U/L (16-61); Albumin, Serum 3.6 g/dL (3.2-5.0); Alkaline Phosphatase 98 U/L (45-117); Anion Gap 7 (5-15); BUN 21 mg/dL (7-18); BUN/Creat Ratio 21.7 RATIO (10-20); Calcium,Total 10.3 mg/dL (8.5-10.1); Chloride 99 mmol/L (98-107); Creatinine, Serum 0.97 mg/dL (0.70-1.30); EST Glomerular Filtration Rate 82 mL/min (>60); Est Glom Filt Rate - Afr Amer 99 mL/min (>60); Estimated Creatinine Clearance 68.14 ml/min; Globulin 4.2 g/dL (2.2-4.2); Glucose 224 mg/dL (74-106); Lipase 276 U/L (73-393); Potassium 3.9 mmol/L (3.5-5.1); Protein, Total 7.8 g/dL (6.4-8.2); Sodium Level 136 mmol/L (136-145)
[2022-03-18] MEDS: Famotidine 200 MG/20 ML MDV 20 MG in 0.9% Normal Saline (Pres. free 8 ML 300 MG IV (16:05)
[2022-03-18 16:08] VITALS: PULSE 89; RESP 15; O2SAT 99
[2022-03-18 17:45] VITALS: BP 162/102; PULSE 97; RESP 16; O2SAT 98
== END 2022-03-18 17:45 | disposition home or self-care (01) ==
PROVIDERS: Emergency Provider Emergency Medicine; Visit Provider Emergency Medicine
DX: K29.70 Gastritis, unspecified, without bleeding (principal); E11.9 Type 2 diabetes mellitus without complications; E78.00 Pure hypercholesterolemia, unspecified; R10.816 Epigastric abdominal tenderness; I10 Essential (primary) hypertension; E78.5 Hyperlipidemia, unspecified; I25.2 Old myocardial infarction; Z87.442 Personal history of urinary calculi
CPT/HCPCS: 74177; 80053; 83690; 85025; 96361; 96374; 96375; 99283; Q9967; J2405; J3490

== ENCOUNTER 2022-06-18 10:37 | Inpatient (IN) | payer MEDICARE, SELFPAY ==
[2022-06-18] VITALS (19 sets, daily range): BP systolic 95–138; BP diastolic 47–96; PULSE 95–147; RESP 9–23; TEMP 36.3–36.8; O2SAT 81–100; BMI 22.6; BMI 17.0
--- NOTE | 2022-06-18 10:51 | EKG12_ITS ---
Test Reason : PALP Blood Pressure : / mmHG Vent. Rate : 118 BPM Atrial Rate : 000 BPM P-R Int : 000 ms QRS Dur : 076 ms QT Int : 324 ms P-R-T Axes : 000 031 041 degrees QTc Int : 454 ms Atrial fibrillation with rapid ventricular response Low voltage QRS Abnormal ECG Confirmed by KIRSTEN JOLLY, JOSUE ([id number]), restaurant expeditor HAROON KAPLAN ([id number]) on 06/22/2022 8:14:43 AM Referred By: TL Confirmed By:JOSUE CURTIS MD
[2022-06-18] MEDS: Metoprolol Tartrate 5 MG/5 ML Vial IV ×2 (11:00→12:50)
[2022-06-18 11:02] LABS: Absolute Lymphocyte Count 1.45 X10^3/uL (0.83-4.51); Absolute Neutrophil Count 8.3 X10^3/uL (2.0-7.7); Basophil# 0.02 X10^3/uL; Basophil% 0.2 % (0-1); Eosinophil# 0.02 X10^3/uL; Eosinophils% 0.2 % (0-5); Hematocrit 29.5 % (40-54); Hemoglobin 9.6 g/dL (13.0-16.5); Lymphocyte # 1.45 X10^3/ul (0.83-4.51); Lymphocyte % 13.7 % (19-41); Mean Corp Hgb Conc 32.5 g/dL (32-36); Mean Corpuscular Volume 83.1 fL (80-94); Mean Platelet Vol. 8.8 fl (6.2-12.0); Monocyte# 0.69 X10^3/uL; Monocyte% 6.5 % (0-10); NRBC Flagged by Analyzer 0 % (0-5); Neutrophil % 78.2 % (47-70); Platelet Count 473 K/mm3 (150-450); RBC Distribution Width CV 13.3 % (11.6-14.6); RBC Distribution Width SD 39.7 fl (35.1-43.9); Red Blood Count 3.55 M/mm3 (4.6-6.2); White Blood Count 10.6 K/mm3 (4.4-11.0)
--- NOTE | 2022-06-18 11:03 | EDS_ITS ---
HPI History of Present Illness Chief Complaint: Weakness Informant: patient Narrative Narrative: Patient presents by private vehicle with sister for evaluation. Increasing lightheaded symptoms over the last 2 weeks. Worsened over last 2 days. No syncopal episodes. Denies chest pains or shortness of breath. Reports noticing more black watery stools over the past week. He currently is not taking any medications. History of hypertension, diabetes, hyperlipidemia, reports SC about 5 years ago unclear if he had any stenting. Denies chest pains. Patient states he lives with his son who would not take him to the doctor. He last seen physician over a year ago. Denies any palpitations. Denies racing heart. Of note patient was seen by myself 3 months ago in the ED for epigastric pain found to have a thickened gastrum was on ibuprofen at that time. He states his son has not been giving him ibuprofen. He was given GI follow-up he was put on omeprazole and Carafate. He states he finished the medication however he would not get transport to the doctor's office for his medications or to GI. Hemoglobin 13.4,3 months ago. Prior similar symptoms: No PFSH PFSH Medical History Anxiety Depression Diabetes Heart attack HTN (hypertension) Kidney stones Left inguinal hernia Mild hypercholesterolemia Allergy/AdvReac Type Severity Reaction Status Date / Time No Known Allergies Allergy Verified 06/18/22 10:42 Surgical History History of kidney surgery S/P inguinal hernia repair Social History Smoking Status: Unknown if ever smoked alcohol intake: never ROS ROS ED Constitutional Constitutional ED: Denies chills, fever(s) or sweats Eyes Eyes: Denies change in vision ENT ENT ED: Denies dysphagia or sore throat Cardiovascular Cardiovascular: Reports other Details: Lightheaded symptoms. Denies syncope. ; Denies chest pain, leg edema, palpitations or racing heartbeat Respiratory/Chest Respiratory/Chest: Denies cough, dyspnea or dyspnea on exertion Gastrointestinal Gastrointestinal: Reports other Details: Black stools. ; Denies abdominal pain, diarrhea, nausea or vomiting Genitourinary Genitourinary ED: Denies dysuria, hematuria or urinary frequency Musculoskeletal Musculoskeletal: Denies back pain, extremity pain or neck pain Integumentary Denies rash or wounds Neurologic Neurologic: Denies headache(s), paresthesias or weakness EXAM Physical Exam Const Vital Signs: 06/18/22 10:40 06/18/22 10:44 06/18/22 10:44 Temperature 97.4 F L 97.4 F L Temperature Source Temporal Temporal Pulse Rate 147 H 133 H 133 H Pulse Rate [Lying] Pulse Rate [Sitting (for 1 minute prior to obtaining)] Pulse Rate [Standing (for 1 minute prior to obtaining)] Respiratory Rate 20 H 19 H 19 H Respiratory Effort Respiratory Pattern Blood Pressure 111/96 H 122/93 H 122/93 H Blood Pressure [Lying] Blood Pressure [Sitting (for 1 minute prior to obtaining)] Blood Pressure [Standing (for 1 minute prior to obtaining)] Blood Pressure Mean 101 102 102 Blood Pressure Mean [Lying] Blood Pressure Mean [Sitting (for 1 minute prior to obtaining)] Blood Pressure Mean [Standing (for 1 minute prior to obtaining)] Pulse Ox 88 Oxygen Delivery Method Room Air Oxygen Flow Rate (L/min) 06/18/22 10:45 06/18/22 11:05 06/18/22 11:13 Temperature Temperature Source Pulse Rate 115 H Pulse Rate [Lying] Pulse Rate [Sitting (for 1 minute prior to obtaining)] Pulse Rate [Standing (for 1 minute prior to obtaining)] Respiratory Rate 12 Respiratory Effort Normal Non-Labored Respiratory Pattern Normal Blood Pressure 119/70 Blood Pressure [Lying] Blood Pressure [Sitting (for 1 minute prior to obtaining)] Blood Pressure [Standing (for 1 minute prior to obtaining)] Blood Pressure Mean 86 Blood Pressure Mean [Lying] Blood Pressure Mean [Sitting (for 1 minute prior to obtaining)] Blood Pressure Mean [Standing (for 1 minute prior to obtaining)] Pulse Ox 99 93 Oxygen Delivery Method Room Air Nasal Cannula Oxygen Flow Rate (L/min) 2 06/18/22 11:34 06/18/22 12:00 06/18/22 13:00 Temperature Temperature Source Pulse Rate 107 H 111 H 108 H Pulse Rate [Lying] Pulse Rate [Sitting (for 1 minute prior to obtaining)] Pulse Rate [Standing (for 1 minute prior to obtaining)] Respiratory Rate 9 L 13 13 Respiratory Effort Respiratory Pattern Blood Pressure 138/86 H 124/75 H 113/71 Blood Pressure [Lying] Blood Pressure [Sitting (for 1 minute prior to obtaining)] Blood Pressure [Standing (for 1 minute prior to obtaining)] Blood Pressure Mean 103 91 85 Blood Pressure Mean [Lying] Blood Pressure Mean [Sitting (for 1 minute prior to obtaining)] Blood Pressure Mean [Standing (for 1 minute prior to obtaining)] Pulse Ox 100 94 95 Oxygen Delivery Method Nasal Cannula Nasal Cannula Nasal Cannula Oxygen Flow Rate (L/min) 2 2 2 06/18/22 13:30 06/18/22 14:00 06/18/22 15:00 Temperature Temperature Source Pulse Rate 117 H 103 H Pulse Rate [Lying] 105 H Pulse Rate [Sitting (for 1 minute prior to obtaining)] 108 H Pulse Rate [Standing (for 1 minute prior to obtaining)] 98 Respiratory Rate 23 H 15 Respiratory Effort Respiratory Pattern Blood Pressure 113/73 95/64 Blood Pressure [Lying] 125/85 H Blood Pressure [Sitting (for 1 minute prior to obtaining)] 113/71 Blood Pressure [Standing (for 1 minute prior to obtaining)] 108/76 Blood Pressure Mean 86 74 Blood Pressure Mean [Lying] 98 Blood Pressure Mean [Sitting (for 1 minute prior to obtaining)] 85 Blood Pressure Mean [Standing (for 1 minute prior to obtaining)] 86 Pulse Ox 96 95 Oxygen Delivery Method Nasal Cannula Nasal Cannula Oxygen Flow Rate (L/min) 2 2 06/18/22 15:49 Temperature Temperature Source Pulse Rate 112 H Pulse Rate [Lying] Pulse Rate [Sitting (for 1 minute prior to obtaining)] Pulse Rate [Standing (for 1 minute prior to obtaining)] Respiratory Rate 18 Respiratory Effort Respiratory Pattern Blood Pressure 107/69 Blood Pressure [Lying] Blood Pressure [Sitting (for 1 minute prior to obtaining)] Blood Pressure [Standing (for 1 minute prior to obtaining)] Blood Pressure Mean 81 Blood Pressure Mean [Lying] Blood Pressure Mean [Sitting (for 1 minute prior to obtaining)] Blood Pressure Mean [Standing (for 1 minute prior to obtaining)] Pulse Ox 96 Oxygen Delivery Method Room Air Oxygen Flow Rate (L/min) Positive well nourished and well developed General Appearance ED: well developed and NAD HEENT Reports moist mucous membranes normocephalic and atraumatic Eyes PERRL and EOMs intact bilaterally Eyes Narrative: Pale conjunctiva. General Eye ED: Yes normal appearance of both eyes Neck no lymphadenopathy and supple General: Negative for tenderness Chest Wall Chest: Negative for tenderness Resp normal respiratory effort and normal air movement Effort and Inspection: symmetric chest movement; Negative for respiratory distress Cardio no murmurs Rate: tachycardic Rhythm: abnormal rhythm Peripheral Pulses: pulses 2+ throughout GI normal to inspection, nondistended, normoactive bowel sounds and non-tender GI Narrative: Rectal: Small anterior hemorrhoid nonthrombosed. Black stools, guaiac pending. Palpation: Negative for guarding or rebound tenderness present Back/Spine no CVA tenderness and no thoracic nor lumbar tenderness Extremity normal to inspection General Extremety ED: Negative for edema or tenderness General Extremity: Negative for edema Neuro oriented x3 and no sensory deficits noted Sensorium / Orientation: awake and alert Skin no rashes or lesions noted and no wounds Skin Narrative: Pallor of the hands. MDM MDM MDM Narrative Medical decision making narrative: Patient Angelica. fib with RVR with signs of anemia. Rectal concerning for GI bleed. He is found 3 months ago thickened gastrum on NSAIDs at that time. He did not follow-up. He has transient hypoxia in the 88 on room air with improved with deep breaths. He denies palpitations. Currently concern for upper GI bleed with anemia leading to atrial fibrillation. She is started on Protonix. Lopressor ordered for his tachycardia. Blood pressure remained stable heart rate improving with Lopressor additional Lopressor was given. Stool guaiac returned positive. Hemoglobin 9.6. Glucose returned at 518 normal, sodium 128 likely from his hyperglycemia. Clinically was feeling better with heart rate more controlled. Orthostatics was negative. He was started on Protonix bolus with a drip. Given low-dose morphine for abdominal discomfort, he has a nonsurgical abdomen. Reports colonoscopy 3 years ago no history of upper endoscopy. He is currently not taking NSAIDs. He was given 15 units of short acting insulin with a liter of fluids for his hyperglycemia. Recheck an hour after insulin glucose down to 408. Chest x-ray 1 view reviewed by myself and read by radiology negative for any acute process. There is currently no GI coverage at this time. Therefore discussed with family they would like to go to [facility]. I spoke with [facility] with Dr. Anglin, discussed patient's history and findings. He is excepted to the facility for further management. He denies any alcohol history reports marijuana once a month. Patient family updated and awaiting transfer at this time. 1630: Clinically remained stable heart rate fluctuating 80s to 110s. he continued IV fluids at 100 due to being kept NPO. Awaiting transfer at this time. He has been 6 hours since his initial labs approximately, will order recheck H&H. Lab Data Attestation: I reviewed the patient's lab results. Labs: Laboratory Results - last 24 hr 06/18/22 06/18/22 06/18/22 10:46 10:46 10:46 WBC 10.6 RBC 3.55 L Hgb 9.6 L Hct 29.5 L MCV 83.1 MCH 27.0 MCHC 32.5 RDW Std Deviation 39.7 RDW Coeff of [place] 13.3 Plt Count 473 H MPV 8.8 Immature Gran % (Auto) 1.200 H Neut % (Auto) 78.2 H Lymph % (Auto) 13.7 L [place] % (Auto) 6.5 Eos % (Auto) 0.2 Baso % (Auto) 0.2 Absolute Neuts (auto) 8.3 H Absolute Lymphs (auto) 1.45 Nucleated RBC % 0 PT 13.1 INR 1.0 APTT 28.8 Sodium 128 L Potassium 3.9 Chloride 91 L Carbon Dioxide 27.0 Anion Gap 10 BUN 21 H Creatinine 1.18 Estim Creat Clear Calc 53.82 Est GFR (MDRD) Af Amer 79 Est GFR (MDRD) Non-Af 65 BUN/Creatinine Ratio 17.8 Glucose 518 H* Calcium 9.2 Total Bilirubin 0.40 AST 9 L ALT 11 L Alkaline Phosphatase 111 Total Protein 6.6 Albumin 2.4 L Globulin 4.2 Albumin/Globulin Ratio 0.6 L POC Glucose Blood Type Antibody Screen 06/18/22 06/18/22 10:46 13:03 WBC RBC Hgb Hct MCV MCH MCHC RDW Std Deviation RDW Coeff of [place] Plt Count MPV Immature Gran % (Auto) Neut % (Auto) Lymph % (Auto) [place] % (Auto) Eos % (Auto) Baso % (Auto) Absolute Neuts (auto) Absolute Lymphs (auto) Nucleated RBC % PT INR APTT Sodium Potassium Chloride Carbon Dioxide Anion Gap BUN Creatinine Estim Creat Clear Calc Est GFR (MDRD) Af Amer Est GFR (MDRD) Non-Af BUN/Creatinine Ratio Glucose Calcium Total Bilirubin AST ALT Alkaline Phosphatase Total Protein Albumin Globulin Albumin/Globulin Ratio POC Glucose 408 H Blood Type O POSITIVE Antibody Screen NEGATIVE Radiography Diagnostic Testing: Clinical Impression(s) from Imaging Studies Chest X-Ray 06/18/22 12:15 IMPRESSION: Hyperinflation. Lungs are clear. Electronically Signed: Daryl Atkinson MD at 12:47 EST , EKG Initial EKG: Attestation: I personally reviewed and interpreted this EKG as follows: Comments: Atrial fibrillation rate of 118, no ST or T wave changes. Discharge Plan Triage Chief Complaint: Weakness ED Provider: Wisam Goncalves Dx/Rx/DC Orders Clinical Impression: Upper GI bleed, Atrial fibrillation, new onset, Anemia, Hyperglycemia due to diabetes mellitus, Pseudohyponatremia Primary Care Provider: Care Physician,No Primary Referrals: Care Physician,No Primary [Primary Care Provider] - Disposition Disposition: DC/Tx to Another Type of HCF
[2022-06-18 11:23] LABS: Prothrombin Time (Protime)PT. 13.1 SECONDS (11.7-14.9)
[2022-06-18 11:24] LABS: Partial Thromboplast Time 28.8 Seconds (24.1-36.2)
[2022-06-18 11:38] LABS: ALB/GLOB Ratio 0.6 RATIO (0.9-2.4); AST(SGOT) 9 U/L (15-37); Alanine Aminotransfer ALT/SGPT 11 U/L (16-61); Albumin, Serum 2.4 g/dL (3.2-5.0); Alkaline Phosphatase 111 U/L (45-117); Anion Gap 10 (5-15); BUN 21 mg/dL (7-18); BUN/Creat Ratio 17.8 RATIO (10-20); Calcium,Total 9.2 mg/dL (8.5-10.1); Chloride 91 mmol/L (98-107); Creatinine, Serum 1.18 mg/dL (0.70-1.30); EST Glomerular Filtration Rate 65 mL/min (>60); Est Glom Filt Rate - Afr Amer 79 mL/min (>60); Estimated Creatinine Clearance 53.82 ml/min; Globulin 4.2 g/dL (2.2-4.2); Glucose 518 mg/dL (74-106); Potassium 3.9 mmol/L (3.5-5.1); Protein, Total 6.6 g/dL (6.4-8.2); Sodium Level 128 mmol/L (136-145)
--- NOTE | 2022-06-18 11:39 | ED.RN ---
Spoke with daughter, Beatriz Saldaña per consent of patient. She requests patient to be transferred to [facility], advised her of the possibility of long wait times and she is ok with satellite facility if came to that.
[2022-06-18] MEDS: Insulin Lispro 100 UNIT/ML INSULN.PEN 15 UNIT SC (11:58)
[2022-06-18] MEDS: Morphine 2 MG/ML Syringe IV ×4 (11:58→21:52)
[2022-06-18] MEDS: 0.9% Normal Saline 1,000 ML 1000 ML IV (12:01)
--- NOTE | 2022-06-18 12:15 | RAD_ITS ---
STUDY: X-RAY CHEST REASON FOR EXAM: Male, 66 years old. Hypoxia TECHNIQUE: Single AP portable view of the chest. COMPARISON: None. FINDINGS: EKG electrodes are seen. Hyperinflation. Lungs are clear. There is no demonstrated pleural abnormality. Normal size heart. Normal mediastinum and mita. Normal visualized pulmonary arteries. Normal visualized aortic arch and descending thoracic aorta. There are degenerative changes of the visualized thoracic spine. Normal visualized ribs, clavicles, and shoulders. There is no demonstrated abnormality of the visualized soft tissue structures of the upper abdomen. RAD/Chest 1 View (Portable) IMPRESSION: Hyperinflation. Lungs are clear. Electronically Signed: Daryl Atkinson MD at 12:47 EST ,
[2022-06-18 13:25] LABS: Bedside Glucose 408 mg/dL (74-106)
[2022-06-18] MEDS: 0.9% Normal Saline 1,000 ML 100 ML IV ×3 (15:46→23:11)
--- NOTE | 2022-06-18 16:16 | CM.ED ---
SW Note CORRIE was advised by FLORENCIA Anderson that patient lived with his son, who is currently incarcerated, and the son was denying patient's medication be refilled or that the patient was taken anywhere. Per RN patient's ADL's were deteriorating and he was not caring for himself. CORRIE met with patient and his sister. Provided information on [facility]. NO further concerns or issues voiced. CORRIE remains available if needs arise. CORRIE called Chris at [facility] and reviewed the presentation with her. She said to have the provider, where patient is transferred to, call if they have any concerns. CORRIE updated FLORENCIA Anderson. Plan: Resources Provided Jamila HEBERT
[2022-06-18 17:14] LABS: Hematocrit 24.1 % (40-54); Hemoglobin 7.9 g/dL (13.0-16.5)
[2022-06-18 17:25] LABS: Bedside Glucose 159 mg/dL (74-106)
--- NOTE | 2022-06-18 17:31 | ED.RN ---
TALKED TO [facility] STILL NO BED AVAILABLE
--- NOTE | 2022-06-18 18:46 | ED.RN ---
PATIENT AND FAMILY UPDATED ON [facility] HAVING NO BEDS STILL, DECLINES NEEDS AT TIME.
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
[2022-06-18 19:37] LABS: Hematocrit 24.9 % (40-54)
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
--- NOTE | 2022-06-18 20:31 | ECHOD_ITS ---
Reason For Study: Afib, Aflutter Procedure This was a 2D Doppler, Color Flow transthoracic echocardiogram. Exam performed portable in patient room. Left Ventricle Normal size and thickness. Moderately severe global left ventricular systolic dysfunction. The left ventricular ejection fraction is 35 %. Diastolic function is indeterminate. Right Ventricle Normal right ventricle. Atria The left atrium is severely enlarged. Normal right atrium. Mitral Valve Mild (1+) mitral valve insufficiency. Tricuspid Valve Mild tricuspid valve insufficiency. Normal pulmonary artery pressure. Aortic Valve Trisinus/trileaflet aortic valve. Pulmonic Valve The pulmonic valve is not well visualized. Great Vessels Normal sized aortic root. Pericardium/Pleural No pericardial effusion. MMode/2D Measurements & Calculations LVIDd: 5.2 cm IVSd: 1.1 cm Ao root diam: 2.6 cm LVIDs: 3.9 cm LVPWd: 0.94 cm RVDd: 3.4 cm FS: 23.8 % LAV(MOD-bp): 70.5 ml LVAd ap4: 28.3 cm2 LVAd ap2: 33.0 cm2 LAV(MOD-bp) Indexed: 41.0 ml/m2 LVLd ap4: 8.3 cm LVLd ap2: 8.2 cm LAV(MOD-sp2): 97.6 ml EDV(MOD-sp4): 79.1 ml EDV(MOD-sp2): 107.7 ml LAV(MOD-sp4): 52.4 ml EDV(sp4-el): 82.0 ml EDV(sp2-el): 112.8 ml LVAs ap4: 20.3 cm2 LVAs ap2: 21.4 cm2 LVLs ap4: 7.5 cm LVLs ap2: 7.4 cm ESV(MOD-sp4): 46.9 ml ESV(MOD-sp2): 50.8 ml ESV(sp4-el): 47.1 ml ESV(sp2-el): 52.6 ml EF(MOD-sp4): 40.8 % EF(MOD-sp2): 52.9 % EF(sp4-el): 42.6 % SV(MOD-sp4): 32.3 ml SV(MOD-sp2): 56.9 ml SV(sp4-el): 35.0 ml LA dimension(2D): 4.6 cm LA A4 area: 18.4 cm2 RA A4 area: 12.2 cm2 Doppler Measurements & Calculations MV E max paul: 82.2 cm/sec Lat Peak E' Paul: 6.1 cm/sec Med Peak E' Paul: 6.6 cm/sec MV A max paul: 64.6 cm/sec E/E' lat: 13.5 E/E' med: 12.5 MV E/A: 1.3 Ao V2 max: 152.0 cm/sec LV V1 max: 107.6 cm/sec PA V2 max: 81.3 cm/sec Ao max P.4 mmHg LV V1 max P.7 mmHg Ao V2 mean: 104.6 cm/sec Ao mean P.9 mmHg Ao V2 VTI: 25.9 cm TR max paul: 198.7 cm/sec TR max P.8 mmHg ECHO/Echo Complete Interpretation Summary The left ventricular ejection fraction is 35-40 %. Moderately severe global left ventricular systolic dysfunction. Diastolic function is indeterminate. Ordering Physician: Binh Bauer Performed By: Tere John, DAVINA, RVT
[2022-06-18] MEDS: Carvedilol 3.125 MG TABLET PO (21:01)
[2022-06-18 21:46] LABS: Bedside Glucose 138 mg/dL (74-106)
[2022-06-18] MEDS: 0.9% Saline Lock 10 ML Syringe IV (21:53)
[2022-06-18 22:00] LABS: Hemoglobin A1c 12.3 % (3.8-5.6)
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
[2022-06-19] VITALS (14 sets, daily range): BP systolic 90–129; BP diastolic 52–88; PULSE 75–104; RESP 16–20; TEMP 36.5–37; O2SAT 90–98; BMI 20.2
[2022-06-19] MEDS: Morphine 2 MG/ML Syringe IV ×2 (02:54→09:13)
[2022-06-19] MEDS: 0.9% Saline Lock 10 ML Syringe IV ×3 (02:54→16:42)
[2022-06-19] MEDS: Insulin Lispro 100 UNIT/ML INSULN.PEN SC ×3 (06:32→21:28)
[2022-06-19 06:50] LABS: Absolute Lymphocyte Count 1.38 X10^3/uL (0.83-4.51); Basophil# 0.02 X10^3/uL; Basophil% 0.3 % (0-1); Eosinophil# 0.03 X10^3/uL; Eosinophils% 0.4 % (0-5); Hematocrit 24.9 % (40-54); Hemoglobin 7.9 g/dL (13.0-16.5); Lymphocyte # 1.38 X10^3/ul (0.83-4.51); Lymphocyte % 19.9 % (19-41); Mean Corp Hgb Conc 31.7 g/dL (32-36); Mean Corpuscular Hgb 27.1 pg (27.0-32.0); Mean Corpuscular Volume 85.6 fL (80-94); Mean Platelet Vol. 8.4 fl (6.2-12.0); Monocyte# 0.41 X10^3/uL; Monocyte% 5.9 % (0-10); NRBC Flagged by Analyzer 0 % (0-5); Neutrophil # 5.04 X10^3/uL (2.7-7.7); Neutrophil % 72.5 % (47-70); Platelet Count 292 K/mm3 (150-450); RBC Distribution Width CV 13.3 % (11.6-14.6); RBC Distribution Width SD 41.5 fl (35.1-43.9); Red Blood Count 2.91 M/mm3 (4.6-6.2)
[2022-06-19 06:56] LABS: Bedside Glucose 240 mg/dL (74-106)
[2022-06-19 07:26] LABS: Anion Gap 7 (5-15); BUN 17 mg/dL (7-18); BUN/Creat Ratio 21.5 RATIO (10-20); Calcium,Total 7.4 mg/dL (8.5-10.1); Chloride 101 mmol/L (98-107); Creatinine, Serum 0.79 mg/dL (0.70-1.30); EST Glomerular Filtration Rate 103 mL/min (>60); Est Glom Filt Rate - Afr Amer 125 mL/min (>60); Glucose 241 mg/dL (74-106); Sodium Level 133 mmol/L (136-145); Thyroid Stim Hormone (TSH) 0.57 uIU/mL (0.358-3.74)
[2022-06-19] MEDS: 0.9% Normal Saline 1,000 ML 50 ML IV (08:11)
[2022-06-19] MEDS: Potassium Chloride Oral Soln 20 MEQ/15 ML UDC 40 MEQ PO (09:10)
--- NOTE | 2022-06-19 09:42 | CASEMGMT ---
Per Dr. Jordan, pt wants to go home with daughter at d/c. CM to follow. Sabrina DON CM
--- NOTE | 2022-06-19 10:06 | NURSING ---
This RN called and updated the pt's sister, Gerda with the pt's permission.
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
[2022-06-19 11:35] LABS: Bedside Glucose 211 mg/dL (74-106)
[2022-06-19] MEDS: Morphine 4 MG/ML Syringe IV ×2 (12:25→16:42)
--- NOTE | 2022-06-19 13:20 | EGD_PTH ---
PATIENT: XOCHITL SUAREZ LOC: [facility] U#:[id number] AGE/SX: 66/M [facility] RE06/18/[address]: Dr. Teena Kang MD : 1955 BED: 1 DIS: 06/23/2022 SPEC #: [id number] RECD: 06/19/22 14:38 STATUS: ANA ROSA RE #: [id number] LISA: 06/19/22 13:[address]: Deejay Claudio DEPT: SURGICAL PATHOLOGY RECD BY: Melanie Daniels ENTERED: 06/21/22 10:19 SP TYPE: EGD BIOPSY OTHR DR: MD Dr. Raquel Palmer MD Dr. Kathryn Lee, DO Dr. Nicholas F Kotsonis, MD Tissues: Gastric mucous membrane Procedures: Surgery Specimen Level IV Comments: @ Ordering doctor for SUIV edited from to @ by ARNOL at 06/21/22 1318 @ Submitting doctor edited from to @ by RGOOD at 06/21/22 1318 HEADER OPERATION: EGD with foreign body removal, clot removal and biopsy (MAC) PRE-OP DIAGNOSIS: Anemia due to GI blood loss, upper GI bleed, epigastric pain TISSUE SUBMITTED: Gastric ulcer MICROSCOPIC DIAGNOSIS Gastric ulcer, biopsy: Fragments of gastric mucosa with extensive ulceration, associated fibrinopurulent exudation, acute and chronic inflammation and granulation tissue reaction. See comment. Belinda 06/22/2022 COMMENT The results of immunohistochemistry for Helicobacter pylori will be reported separately ([id number]). A fragment of duodenal mucosa is also noted. MICROSCOPIC DESCRIPTION Slides are reviewed. GROSS DESCRIPTION Received in fixative is one container labeled with the patient's name and designated gastric ulcer. The specimen consists of multiple irregular fragments of light corbin soft tissue that in aggregate measure 1.5 x 1 x 0.1 cm. The specimen is totally submitted in one cassette. / NICOLETTE:livan 06/21/2022 TC:2 CPT: 85424
--- NOTE | 2022-06-19 13:20 | IMM_PTH ---
PATIENT: XOCHITL SUAREZ LOC: [facility] U#:[id number] AGE/SX: 66/M ROOM: [facility] RE06/18/[address]: Dr. Teena Kang MD : 1955 BED: 1 DIS: 06/23/2022 SPEC #: [id number] RECD: 06/21/22 13:18 STATUS: ANA ROSA REQ #: [id number] LISA: 06/19/22 13:[address]: Deejay Claudio DEPT: IMMUNOHISTOCHEMISTRY RECD BY: Leanna Garcia ENTERED: 06/21/22 13:19 SP TYPE: IMMUNO OTHR DR: MD Dr. Raquel Palmer MD Dr. Kathryn Lee, DO Dr. Nicholas F Kotsonis, MD Tissues: Stomach, NOS Procedures: H Pylori (initial) PHYSICIAN & INSTITUTION [place] [id number] SPECIMEN INFORMATION: Tissue Source: Gastric ulcer Clinical Info: Anemia, upper GI bleed, epigastric pain Specimen Number: [id number] CPT code: 30090 METHODOLOGY: Deparaffinized sections of prefer/formalin-fixed tissue or PAP/DQ stained slides are incubated with monoclonal/polyclonal antibodies/oligonucleotide probes. Localization is made via biotin free immunoperoxidase method. Appropriate controls are performed and reacted as expected. Results on target cell population are indicated in the following table: RESULTS: ANTIBODY / CLONE RESULT H Pylori (polyclonal) positive These tests were developed and their performance characteristics determined by [facility]. They may not have been cleared or approved by the U.S. Food and Drug Administration. The FDA has determined that such clearance or approval is not necessary. The above immunohistochemical/dualISH markers are ordered and reviewed by the Pathologist. INTERPRETATION: Gastric ulcer, biopsy: Positive for Helicobacter pylori organisms. SJ:livan 06/22/2022
--- NOTE | 2022-06-19 14:45 | OP.CCLET_ITS ---
06/19/2022 No Primary Care Physician Re : Upper GI endoscopy procedure for Duglas Saldaña Dear Care Physician This procedure was performed on Sunday, June 19, 2022. My impressions and recommendations are as follows: Impressions : - LA Grade D erosive esophagitis. - Small hiatal hernia. - A large amount of a phytobezoar in the stomach. Removal was successful. - Oozing gastric ulcer with a visible vessel. Treated with a heater probe. Biopsied. - Gastric stenosis was found at the pylorus. Dilated. - No gross lesions in the first portion of the duodenum. Recommendations : - Return patient to [facility] for ongoing care. - Full liquid diet today. - Medical management through enzymatic disintegration is most effective on phytobezoars, in which plant fibers are susceptible to dissolution. The most commonly reported substance used is dark soda (Coca Cola or Pepsi) , where the acidity from carbonic and phosphoric acid allows for fiber digestion, the sodium bicarbonate act as a mucolytic, and carbon dioxide bubbles penetrate between fibers to increase the surface area for interaction with acid. The dose often reported is 3L over 24 hours, either though oral intake or nasogastric tube, though this can vary in clinical practice based on tolerance. - If the patient cannot tolerate low pH due to the presence of a peptic ulcer and severe GERD. Cellulase at a dose of 3-5 grams in 300-500ml of water over 2-5 days has been utilized in the past, though seen to be inferior to soda. -Prokinetic agents, like metoclopramide and Azithromyocin, may facilitate fragmentation and improve gastric emptying in the setting of a pyloric stricture. However if this does not go into the small bowel without being broken up sufficiently it can cause a small bowel obstruction. - The patient has taken no previous anticoagulant or antiplatelet agents. - No aspirin, ibuprofen, naproxen, or other non-steroidal anti-inflammatory drugs. My findings are described in the full procedure note, which is enclosed. If I can be of further assistance, please feel free to contact me at . Sincerely, Deejay Claudio, 06/19/2022 2:44:11 PM This report has been signed electronically.
--- NOTE | 2022-06-19 14:45 | OP.EGD_ITS ---
Patient Name: Duglas Saldaña Procedure Date: 06/19/2022 1:01 PM Date of : 1955 Age: 66 Procedure: Upper GI endoscopy Indications: Melena Providers: Deejay Claudio DO Medicines: Monitored Anesthesia Care Patient Profile: This is a 66 year old male. Refer to note in patient chart for documentation of history and physical. Patient has symptoms of chronic epigastric abdominal pain. Complications: No immediate complications. Procedure: Pre-Anesthesia Assessment: - Prior to the procedure, a History and Physical was performed, and patient medications and allergies were reviewed. The patient is competent. The risks and benefits of the procedure and the sedation options and risks were discussed with the patient. All questions were answered and informed consent was obtained. Patient identification and proposed procedure were verified by the physician in the pre-procedure area. Mental Status Examination: alert and oriented. Airway Examination: normal oropharyngeal airway and neck mobility. Respiratory Examination: clear to auscultation. CV Examination: normal. Prophylactic Antibiotics: The patient does not require prophylactic antibiotics. Prior Anticoagulants: The patient has taken no previous anticoagulant or antiplatelet agents. ASA Grade Assessment: II - A patient with mild systemic disease. After reviewing the risks and benefits, the patient was deemed in satisfactory condition to undergo the procedure. The anesthesia plan was to use monitored anesthesia care (MAC). Immediately prior to administration of medications, the patient was re-assessed for adequacy to receive sedatives. The heart rate, respiratory rate, oxygen saturations, blood pressure, adequacy of pulmonary ventilation, and response to care were monitored throughout the procedure. The physical status of the patient was re-assessed after the procedure. After obtaining informed consent, the endoscope was passed under direct vision. Throughout the procedure, the patient's blood pressure, pulse, and oxygen saturations were monitored continuously. The gastroscope was introduced through the mouth, and advanced to the second part of duodenum. The upper GI endoscopy was accomplished without difficulty. The patient tolerated the procedure well. Scope In: 1:28:15 PM Scope Out: 2:21:32 PM Total Procedure Duration Time 0 hours 53 minutes 17 seconds Findings: LA Grade D (one or more mucosal breaks involving at least 75% of esophageal circumference) esophagitis with no bleeding was found 35 to 40 cm from the incisors. A small hiatal hernia was present. A large amount of a phytobezoar was found in the gastric antrum. Removal of food was not accomplished. It was only partially removed. One oozing cratered gastric ulcer with a visible vessel was found at the incisura. The lesion was 30 mm in largest dimension. Coagulation for hemostasis using heater probe was successful. Estimated blood loss was minimal. Biopsies were taken with a cold forceps for histology. Verification of patient identification for the specimen was done. Estimated blood loss was minimal. A malignant-appearing, intrinsic severe stenosis was found at the pylorus. This was traversed. A TTS dilator was passed through the scope. Dilation with a 20 mm pyloric balloon dilator was performed. The dilation site was examined and showed moderate improvement in luminal narrowing. Estimated blood loss was minimal. No gross lesions were noted in the first portion of the duodenum. Impression: - LA Grade D erosive esophagitis. - Small hiatal hernia. - A large amount of a phytobezoar in the stomach. Removal was successful. - Oozing gastric ulcer with a visible vessel. Treated with a heater probe. Biopsied. - Gastric stenosis was found at the pylorus. Dilated. - No gross lesions in the first portion of the duodenum. Recommendation: - Return patient to [facility] for ongoing care. - Full liquid diet today. - Medical management through enzymatic disintegration is most effective on phytobezoars, in which plant fibers are susceptible to dissolution. The most commonly reported substance used is dark soda (Coca Cola or Pepsi) , where the acidity from carbonic and phosphoric acid allows for fiber digestion, the sodium bicarbonate act as a mucolytic, and carbon dioxide bubbles penetrate between fibers to increase the surface area for interaction with acid. The dose often reported is 3L over 24 hours, either though oral intake or nasogastric tube, though this can vary in clinical practice based on tolerance. - If the patient cannot tolerate low pH due to the presence of a peptic ulcer and severe GERD. Cellulase at a dose of 3-5 grams in 300-500ml of water over 2-5 days has been utilized in the past, though seen to be inferior to soda. -Prokinetic agents, like metoclopramide and Azithromyocin, may facilitate fragmentation and improve gastric emptying in the setting of a pyloric stricture. However if this does not go into the small bowel without being broken up sufficiently it can cause a small bowel obstruction. - The patient has taken no previous anticoagulant or antiplatelet agents. - No aspirin, ibuprofen, naproxen, or other non-steroidal anti-inflammatory drugs. Procedure Code(s): --- Professional --- 70968, 59, Esophagogastroduodenoscopy, flexible, transoral; with control of bleeding, any method 88868, Esophagogastroduodenoscopy, flexible, transoral; with removal of foreign body(s) 61725, Esophagogastroduodenoscopy, flexible, transoral; with dilation of gastric/duodenal stricture(s) (eg, balloon, bougie) 70536, 59,51, Esophagogastroduodenoscopy, flexible, transoral; with biopsy, single or multiple CPT copyright 2017 [employer]. All rights reserved. The codes documented in this report are preliminary and upon unisaw operator review may be revised to meet current compliance requirements. Deejay Claudio DO 06/19/2022 2:44:11 PM This report has been signed electronically. Number of Addenda: 0 Note Initiated On: 06/19/2022 1:01 PM
[2022-06-19] MEDS: Carvedilol 3.125 MG TABLET PO ×2 (15:45→21:24)
[2022-06-19] MEDS: Insulin Lispro 100 UNIT/ML INSULN.PEN 6 UNIT SC (15:54)
[2022-06-19] MEDS: Insulin Glargine-YFGN 100 UNIT/ML Pen 16 UNIT SC (15:54)
[2022-06-19 16:15] LABS: Bedside Glucose 210 mg/dL (74-106)
[2022-06-20] VITALS (8 sets, daily range): BP systolic 118–128; BP diastolic 61–84; PULSE 69–103; RESP 18; TEMP 36.4–37.1; O2SAT 94–95
[2022-06-20] MEDS: Morphine 4 MG/ML Syringe IV ×5 (00:25→18:29)
[2022-06-20] MEDS: MELATONIN 3 MG TABLET PO (00:27)
[2022-06-20 00:41] LABS: Bedside Glucose 178 mg/dL (74-106)
[2022-06-20] MEDS: BENZOCAINE/MENTHOL 1 LOZENGE MUCOUS MEM (04:32)
[2022-06-20] MEDS: 0.9% Normal Saline 1,000 ML 50 ML IV (04:35)
[2022-06-20 06:30] LABS: Absolute Lymphocyte Count 0.93 X10^3/uL (0.83-4.51); Absolute Neutrophil Count 5.5 X10^3/uL (2.0-7.7); Eosinophil# 0.03 X10^3/uL; Eosinophils% 0.4 % (0-5); Hematocrit 22.6 % (40-54); Lymphocyte # 0.93 X10^3/ul (0.83-4.51); Lymphocyte % 13.7 % (19-41); Mean Corpuscular Hgb 26.6 pg (27.0-32.0); Mean Corpuscular Volume 85.9 fL (80-94); Monocyte# 0.33 X10^3/uL; Monocyte% 4.9 % (0-10); NRBC Flagged by Analyzer 0 % (0-5); Neutrophil # 5.46 X10^3/uL (2.7-7.7); Neutrophil % 80.6 % (47-70); Platelet Count 302 K/mm3 (150-450); RBC Distribution Width CV 13.3 % (11.6-14.6); RBC Distribution Width SD 41.6 fl (35.1-43.9); Red Blood Count 2.63 M/mm3 (4.6-6.2); White Blood Count 6.8 K/mm3 (4.4-11.0)
[2022-06-20 07:03] LABS: Anion Gap 9 (5-15); BUN 12 mg/dL (7-18); BUN/Creat Ratio 18.4 RATIO (10-20); Calcium,Total 7.5 mg/dL (8.5-10.1); Chloride 104 mmol/L (98-107); Creatinine, Serum 0.65 mg/dL (0.70-1.30); EST Glomerular Filtration Rate 129 mL/min (>60); Est Glom Filt Rate - Afr Amer 156 mL/min (>60); Glucose 122 mg/dL (74-106); Magnesium 1.6 mg/dL (1.6-2.6); Phosphorus 2.3 mg/dL (2.5-4.9); Potassium 3.1 mmol/L (3.5-5.1); Sodium Level 137 mmol/L (136-145)
[2022-06-20] MEDS: Potassium Chloride Oral Tablet 20 MEQ 60 MEQ PO (08:00)
[2022-06-20] MEDS: Insulin Lispro 100 UNIT/ML INSULN.PEN 6 UNIT SC ×2 (08:02→11:06)
--- NOTE | 2022-06-20 08:09 | NURSING ---
Pt started on second liter of diet coke. Pt has drank 1L of diet coke since 1600 on 06/19.
[2022-06-20 08:31] LABS: Bedside Glucose 129 mg/dL (74-106)
[2022-06-20] MEDS: Insulin Glargine-YFGN 100 UNIT/ML Pen 16 UNIT SC (09:14)
[2022-06-20] MEDS: Carvedilol 3.125 MG TABLET PO ×2 (09:14→21:15)
[2022-06-20] MEDS: Lisinopril 2.5 MG Tablet PO (09:19)
[2022-06-20] MEDS: Empagliflozin 10 MG Tablet PO (09:19)
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
[2022-06-20 10:58] LABS: Absolute Lymphocyte Count 1.05 X10^3/uL (0.83-4.51); Basophil# 0.01 X10^3/uL; Basophil% 0.2 % (0-1); Eosinophil# 0.03 X10^3/uL; Eosinophils% 0.5 % (0-5); Hematocrit 25.3 % (40-54); Hemoglobin 7.4 g/dL (13.0-16.5); Lymphocyte # 1.05 X10^3/ul (0.83-4.51); Lymphocyte % 16.2 % (19-41); Mean Corp Hgb Conc 29.2 g/dL (32-36); Mean Corpuscular Volume 88.8 fL (80-94); Mean Platelet Vol. 9.4 fl (6.2-12.0); Monocyte# 0.37 X10^3/uL; Monocyte% 5.7 % (0-10); NRBC Flagged by Analyzer 0 % (0-5); Neutrophil # 4.96 X10^3/uL (2.7-7.7); Neutrophil % 76.5 % (47-70); Platelet Count 268 K/mm3 (150-450); RBC Distribution Width CV 13.3 % (11.6-14.6); Red Blood Count 2.85 M/mm3 (4.6-6.2); White Blood Count 6.5 K/mm3 (4.4-11.0)
[2022-06-20 11:30] LABS: Bedside Glucose 118 mg/dL (74-106)
[2022-06-20] MEDS: Sucralfate 1 GM Tablet PO ×3 (12:26→21:15)
--- NOTE | 2022-06-20 12:45 | CON.PCM.CA_ITS ---
Assessment & Plan Assessment/Plan (1) Cardiomyopathy: PLAN: Will need work-up when other issues are resolved, preferably as outpatient. I would recommend checking a Lexiscan stress Myoview as outpatient. (2) Atrial fibrillation, new onset: PLAN: Ventricular rate controlled. Patient not a candidate for anticoagulant therapy because of GI bleed and significant anemia. Anticoagulation when okay with surgery/GI. (3) Upper GI bleed: PLAN: As per surgery. (4) Anemia due to GI blood loss: PLAN: As per surgery/internal medicine. HPI Consult Data Date of Consult: 06/20/22 HPI Narrative HPI Narrative: Patient presented to the emergency room with complaints of lightheadedness and dark stools. He was noticed to be severely anemic. EGD was done yesterday. It showed severe peptic ulcer disease. Gastric ulcer with visible vessel was treated with heater probe. As an incidental finding, patient was noted to be in atrial fibrillation with rapid ventricular rate in the emergency room. An echocardiogram was ordered for the patient. Ejection fraction was noted to be 35 to 40%. We are asked for his cardiomyopathy and atrial fibrillation. Patient denies any previous history of cardiac disease. Denies any chest pains. Denies any shortness of breath. No orthopnea. No PND. PFSH Medical History Anxiety Depression Diabetes Heart attack HTN (hypertension) Kidney stones Left inguinal hernia Mild hypercholesterolemia Allergy/AdvReac Type Severity Reaction Status Date / Time No Known Allergies Allergy Verified 06/18/22 10:42 Family History Other COPD (chronic obstructive pulmonary disease) Cancer Diabetes Heart disease Hypertension Surgical History History of kidney surgery S/P inguinal hernia repair Social History Smoking Status: Unknown if ever smoked alcohol intake: never Physical Exam Narrative Comfortable. No apparent distress. Heart sounds 1 and 2 are noted. Chest examination shows decreased breath sounds at bilateral bases. Abdomen soft. Alert oriented x3. No ankle edema. Risk Stratification Risk Stratification Applicable: No Objective Data Vital Signs: Vital Signs Temp Pulse Resp BP Pulse Ox O2 Del Method O2 Flow Rate 97.6 F L 72 18 124/61 H 95 Room Air 4 06/20/22 09:12 06/20/22 09:12 06/20/22 09:12 06/20/22 09:12 06/20/22 09:12 06/20/22 09:12 06/19/22 14:35 Oxygen Flow Rate (L/min) 4 Oxygen Delivery Method Room Air Weight: 138 lb 14.259 oz Body Mass Index (BMI) 20.2 Intake & Output: Intake and Output for Last 24 Hours 06/18/22 06/19/22 06/20/22 23:59 23:59 23:59 Intake Total 1344.67 / 1344.67 2387.67 / 2387.67 2040.16 / 2040.16 Output Total 450 / 450 Balance 1344.67 / 1344.67 2387.67 / 1937.67 1590.16 / 1590.16 Lab / Micro Data Result Diagrams: 06/20/22 10:46 06/20/22 05:40 Labs: Laboratory Results - last 24 hr 06/19/22 15:52: POC Glucose 210 H 06/19/22 21:28: POC Glucose 178 H 06/20/22 05:40: WBC 6.8, RBC 2.63 L, Hgb 7.0 L, Hct 22.6 L, MCV 85.9, MCH 26.6 L , MCHC 31.0 L, RDW Std Deviation 41.6, RDW Coeff of [place] 13.3, Plt Count 302, MPV 9.0, Immature Gran % (Auto) 0.400, Neut % (Auto) 80.6 H, Lymph % (Auto) 13.7 L, [place] % (Auto) 4.9, Eos % (Auto) 0.4, Baso % (Auto) 0.0, Absolute Neuts (auto) 5.5, Absolute Lymphs (auto) 0.93, Nucleated RBC % 0 06/20/22 05:40: Sodium 137, Potassium 3.1 L, Chloride 104, Carbon Dioxide 24.0, Anion Gap 9, BUN 12, Creatinine 0.65 L, Estim Creat Clear Calc 63.00, Est GFR (MDRD) Af Amer 156, Est GFR (MDRD) Non-Af 129, BUN/Creatinine Ratio 18.4, Gluc ose 122 H, Calcium 7.5 L, Phosphorus 2.3 L, Magnesium 1.6 06/20/22 07:58: POC Glucose 129 H 06/20/22 10:46: WBC 6.5, RBC 2.85 L, Hgb 7.4 L, Hct 25.3 L, MCV 88.8, MCH 26.0 L , MCHC 29.2 L D, RDW Std Deviation 43.0, RDW Coeff of [place] 13.3, Plt Count 268, MPV 9.4, Immature Gran % (Auto) 0.900, Neut % (Auto) 76.5 H, Lymph % (Auto) 16.2 L, [place] % (Auto) 5.7, Eos % (Auto) 0.5, Baso % (Auto) 0.2, Absolute Neuts (auto) 5.0, Absolute Lymphs (auto) 1.05, Nucleated RBC % 0 06/20/22 11:02: POC Glucose 118 H Cardiology Labs/Tests 06/20/22 05:40: WBC 6.8, RBC 2.63 L, Hgb 7.0 L, Hct 22.6 L, MCV 85.9, MCH 26.6 L , MCHC 31.0 L, Plt Count 302, MPV 9.0, Immature Gran % (Auto) 0.400, Neut % (Auto) 80.6 H, Lymph % (Auto) 13.7 L, [place] % (Auto) 4.9, Eos % (Auto) 0.4, Baso % (Auto) 0.0, Absolute Neuts (auto) 5.5, Nucleated RBC % 0 06/20/22 05:40: Sodium 137, Potassium 3.1 L, Chloride 104, Carbon Dioxide 24.0, Anion Gap 9, BUN 12, Creatinine 0.65 L, Est GFR (MDRD) Af Amer 156, Est GFR (MDRD) Non-Af 129, BUN/Creatinine Ratio 18.4, Glucose 122 H, Calcium 7.5 L, Phosphorus 2.3 L, Magnesium 1.6 06/20/22 10:46: WBC 6.5, RBC 2.85 L, Hgb 7.4 L, Hct 25.3 L, MCV 88.8, MCH 26.0 L , MCHC 29.2 L D, Plt Count 268, MPV 9.4, Immature Gran % (Auto) 0.900, Neut % (Auto) 76.5 H, Lymph % (Auto) 16.2 L, [place] % (Auto) 5.7, Eos % (Auto) 0.5, Baso % (Auto) 0.2, Absolute Neuts (auto) 5.0, Nucleated RBC % 0 Rhythm: EKG: ECHO: Stress Test: Cardiac Cath: PCI: CT Surgery: Holter monitor: EPS: PPM: CXR: Chest CT Scan: Radiography Diagnostic Testing: Radiology Impression Echocardiogram 06/18/22 20:31 Interpretation Summary The left ventricular ejection fraction is 35-40 %. Moderately severe global left ventricular systolic dysfunction. Diastolic function is indeterminate. Ordering Physician: Binh Bauer Performed By: Tere John, DAVINA, RVT
[2022-06-20] MEDS: 0.9% Saline Lock 10 ML Syringe IV ×2 (14:44→18:28)
[2022-06-20 16:50] LABS: Bedside Glucose 78 mg/dL (74-106)
--- NOTE | 2022-06-20 17:58 | PCM.PROGNOTE ---
Subjective Subjective Patient is complaining of some mild abdominal pain. He underwent an upper endoscopy yesterday was identified as having a large gastric ulcer and a stricture at the distal portion of the stomach. He also has a large phytobezoar in his stomach. Objective Data Objective Data Vital Signs: Vital Signs Temp Pulse Resp BP Pulse Ox O2 Del Method O2 Flow Rate 98.7 F 90 18 119/75 94 Room Air 4 06/20/22 15:07 06/20/22 15:07 06/20/22 15:07 06/20/22 15:07 06/20/22 15:07 06/20/22 15:07 06/19/22 14:35 Oxygen Flow Rate (L/min) 4 Oxygen Delivery Method Room Air Weight: 138 lb 14.259 oz Body Mass Index (BMI) 20.2 Intake & Output: Intake and Output for Last 24 Hours 06/18/22 06/19/22 06/20/22 23:59 23:59 23:59 Intake Total 1344.67 / 1344.67 2387.67 / 2387.67 2040.16 / 2040.16 Output Total 450 / 450 Balance 1344.67 / 1344.67 2387.67 / 1937.67 1590.16 / 1590.16 Medical Nutrition Assessment Dietitian: Malnutrition Criteria Met Start: 06/19/22 12:22 Freq: Status: Active Protocol: Document 06/19/22 12:29 RMA (Rec: 06/19/22 12:29 RMA [id number]) Nutrition Malnutrition Evidence of Malnutrition Exists Yes Malnutrition (severe): Chronic Evidenced By Suboptimal Energy Intake ( Severe),Weight Loss (Severe), Physical Changes (Moderate) Intake Problem Inadequate Oral Intake Etiology related to altered GI function Signs/Symptoms as evidenced by NPO/pending EGD Status Active Problem Clinical Problem Chronic Disease or Condition Related Malnutrition Etiology Severe protein-calorie malnutrition in the context of chronic disease/debility related to inadequate oral intake Signs/Symptoms as evidenced by ~19% wt loss x 3 months, BMI 20.3, moderate muscle/fat wasting in the clavicle, orbital, temporal regions oral intake meeting less than 50% estimated nutrition needs x past 3-6 months, currently NPO Status Active Problem Recommendation Dietitian Recommendations/Changes Recommend advance diet as tolerated to Transitional with goal of Carbohydrate- Controlled diet given high blood glucose and HgbA1C. Liberalize diet as able to optimize oral intake and promote weight gain. Will provide Glucerna Shake as diet advanced for protein/ energy repletion. May need to consider enteral nutrition support if PO established inadequate to meet repletion needs. Lab / Micro Data Result Diagrams: 06/20/22 10:46 06/20/22 05:40 Labs: Laboratory Results - last 24 hr 06/19/22 21:28: POC Glucose 178 H 06/20/22 05:40: WBC 6.8, RBC 2.63 L, Hgb 7.0 L, Hct 22.6 L, MCV 85.9, MCH 26.6 L, MCHC 31.0 L, RDW Std Deviation 41.6, RDW Coeff of [place] 13.3, Plt Count 302, MPV 9.0, Immature Gran % (Auto) 0.400, Neut % (Auto) 80.6 H, Lymph % (Auto) 13.7 L, [place] % (Auto) 4.9, Eos % (Auto) 0.4, Baso % (Auto) 0.0, Absolute Neuts (auto) 5.5, Absolute Lymphs (auto) 0.93, Nucleated RBC % 0 06/20/22 05:40: Sodium 137, Potassium 3.1 L, Chloride 104, Carbon Dioxide 24.0, Anion Gap 9, BUN 12, Creatinine 0.65 L, Estim Creat Clear Calc 63.00, Est GFR (MDRD) Af Amer 156, Est GFR (MDRD) Non-Af 129, BUN/Creatinine Ratio 18.4, Glucose 122 H, Calcium 7.5 L, Phosphorus 2.3 L, Magnesium 1.6 06/20/22 07:58: POC Glucose 129 H 06/20/22 10:46: WBC 6.5, RBC 2.85 L, Hgb 7.4 L, Hct 25.3 L, MCV 88.8, MCH 26.0 L, MCHC 29.2 L D, RDW Std Deviation 43.0, RDW Coeff of [place] 13.3, Plt Count 268, MPV 9.4, Immature Gran % (Auto) 0.900, Neut % (Auto) 76.5 H, Lymph % (Auto) 16.2 L, [place] % (Auto) 5.7, Eos % (Auto) 0.5, Baso % (Auto) 0.2, Absolute Neuts (auto) 5.0, Absolute Lymphs (auto) 1.05, Nucleated RBC % 0 06/20/22 11:02: POC Glucose 118 H 06/20/22 16:28: POC Glucose 78 Micro: Microbiology 06/18/22 13:00 Nasal Secretion SARS-CoV-2 Antigen (Rapid) - Final 06/18/22 11:05 Stool Stool Occult Blood (YANCY) - Final Occult Blood Positive Physical Exam Const alert and oriented x3 Constitutional Narrative: Upper middle-aged white male lying in bed, appears comfortable at this time but is complaining of some epigastric pain, nontoxic HEENT head/scalp atraumatic and moist oral mucous membranes HEENT Narrative: Dentition is fair, Mallampati is 2, no thrush Head and Scalp: normocephalic Resp normal respiratory effort, no retractions, no use of accessory muscles and clear to auscultation bilaterally Auscultation: Negative for crackles, rales, rhonchi or wheezes Cardio regular rate, S1 normal heart sound, S2 normal heart sound, no murmurs, no rub, no gallops and no clicks Cardio Narrative: Irregular irregular rhythm GI normal to inspection, nondistended, normoactive bowel sounds, soft to palpation and non-distended GI Narrative: Significant tenderness in the epigastric region with some guarding no significant tenderness noted in bilateral lower quadrants Extremity no clubbing, cyanosis or edema Extremity Narrative: 2+ pedal pulses Neuro oriented x3, CN's II-XII intact bilaterally, moves all extremities and no focal motor deficits Speech: speech normal Psych Psych Narrative: Affect is flattened mood seems depressed Mood & Affect: depressed Assessment & Plan Assessment/Plan (1) Anemia due to GI blood loss: PLAN: This is secondary to a large gastric ulcer. His hemoglobin is slightly down. Recommend to transfuse to keep hematocrit greater than 30% and hemoglobin greater than 8. (2) Gastric ulcer: PLAN: Recommend to continue PPI and Carafate therapy. Await biopsies of gastric ulcer. Continue a dark soda and digestive enzymes for phytobezoar. (3) Gastric hourglass stricture or stenosis: PLAN: He will need to undergo further dilation of the gastric stricture. Charges/Coding Visit Charges Inpatient E&M: 62470 Subs Hosp L2
[2022-06-20 18:16] LABS: Bedside Glucose 92 mg/dL (74-106)
[2022-06-20] MEDS: Pantoprazole Sodium 40 MG Tablet PO (21:14)
[2022-06-20 21:40] LABS: Bedside Glucose 87 mg/dL (74-106)
[2022-06-21] VITALS (9 sets, daily range): BP systolic 95–136; BP diastolic 52–97; PULSE 63–104; RESP 14–18; TEMP 36.7–37.4; O2SAT 90–97
[2022-06-21] MEDS: Morphine 4 MG/ML Syringe IV (03:13)
[2022-06-21] MEDS: 0.9% Saline Lock 10 ML Syringe IV (03:13)
[2022-06-21 06:03] LABS: Absolute Lymphocyte Count 1.06 X10^3/uL (0.83-4.51); Absolute Neutrophil Count 4.5 X10^3/uL (2.0-7.7); Basophil# 0.01 X10^3/uL; Basophil% 0.2 % (0-1); Eosinophil# 0.04 X10^3/uL; Eosinophils% 0.7 % (0-5); Hematocrit 24.2 % (40-54); Hemoglobin 7.5 g/dL (13.0-16.5); Lymphocyte # 1.06 X10^3/ul (0.83-4.51); Lymphocyte % 17.6 % (19-41); Mean Corpuscular Hgb 26.3 pg (27.0-32.0); Mean Corpuscular Volume 84.9 fL (80-94); Monocyte# 0.39 X10^3/uL; Monocyte% 6.5 % (0-10); NRBC Flagged by Analyzer 0 % (0-5); Neutrophil # 4.45 X10^3/uL (2.7-7.7); Neutrophil % 73.8 % (47-70); Platelet Count 288 K/mm3 (150-450); RBC Distribution Width CV 13.4 % (11.6-14.6); RBC Distribution Width SD 41.7 fl (35.1-43.9); Red Blood Count 2.85 M/mm3 (4.6-6.2)
[2022-06-21] MEDS: Sucralfate 1 GM Tablet PO ×4 (06:05→20:49)
[2022-06-21 06:44] LABS: Anion Gap 11 (5-15); BUN 9 mg/dL (7-18); BUN/Creat Ratio 11.8 RATIO (10-20); Calcium,Total 7.5 mg/dL (8.5-10.1); Chloride 102 mmol/L (98-107); Cholesterol 91 mg/dL (200); Creatinine, Serum 0.76 mg/dL (0.70-1.30); EST Glomerular Filtration Rate 107 mL/min (>60); Est Glom Filt Rate - Afr Amer 130 mL/min (>60); Glucose 88 mg/dL (74-106); High Density Lipoprotein 32 mg/dL; Potassium 3.3 mmol/L (3.5-5.1); Sodium Level 136 mmol/L (136-145); Triglycerides 109 mg/dL; Very Low Density Lipoprotein 22 mg/dL (5-40)
[2022-06-21] MEDS: Insulin Lispro 100 UNIT/ML INSULN.PEN 6 UNIT SC ×3 (08:31→16:12)
[2022-06-21 09:00] LABS: Bedside Glucose 114 mg/dL (74-106)
[2022-06-21] MEDS: Potassium Chloride 10mEq/100mL 10 MEQ/100 ML IV.SOLN. 100 MEQ IV BOLUS ×4 (09:18→12:52)
[2022-06-21] MEDS: Insulin Glargine-YFGN 100 UNIT/ML Pen 16 UNIT SC (09:18)
[2022-06-21] MEDS: Pantoprazole Sodium 40 MG Tablet PO ×2 (09:25→20:50)
[2022-06-21] MEDS: Empagliflozin 10 MG Tablet PO (09:25)
[2022-06-21] MEDS: Carvedilol 3.125 MG TABLET PO ×2 (11:39→20:49)
[2022-06-21] MEDS: Lisinopril 2.5 MG Tablet PO (11:42)
--- NOTE | 2022-06-21 11:45 | NURSING ---
BP 124/64 @ 114
--- NOTE | 2022-06-21 13:15 | CASEMGMT ---
During rounds this am physician feels patient needs a jail facility short term for rehab. SW called patient's daughter, Queenie. SW introduced self and role at [facility]. SW let Queenie know that it is being recommended that patient go to a jail facility short term for rehab. SW answered Queenie's questions. Queenie was going to try and make it to [facility] today before SW leaves. Plan: SNF pending patient and family choices and insurance approval. Vickie Thompson ROENTGENOLOGISTLynn GALDAMEZ
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
--- NOTE | 2022-06-21 14:30 | CASEMGMT ---
CORRIE received a call from Chris at [facility]. Chris said if patient goes to his daughter's home the Adult Protective Service referral will go to whatever county she lives in or if patient stays in [facility] Chris will be the worker. CORRIE told Chris DENTON will let her know. Vickie GALDAMEZ
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
--- NOTE | 2022-06-21 15:49 | CASEMGMT ---
SW spoke with patient and his daughter. When SW went into the room patient was saying he is not going to a [facility]. Patient said this over and over. Patient's daughter asked if we make him go. SW told her we cannot make him go to a [facility]. SW asked if they would like a list of home health agencies. They did want a list. SW provided them with a list of home health care providers including quality and resource use data and consistent with patient?s preferred geographic region, medical needs, and insurance network. Plan: d/c home with patient's daughter with home health.
[2022-06-21 16:08] LABS: Ferritin 86 ng/mL (26-388); Iron 15 ug/dL (65-175); Iron Binding Capacity,Total 180 ug/dL (250-450); PERCENT IRON SATURATION 8.3 % (15.0-55.0)
[2022-06-21 16:55] LABS: Bedside Glucose 121 mg/dL (74-106)
--- NOTE | 2022-06-21 16:57 | PCM.PROGNOTE ---
Subjective Subjective He underwent an upper endoscopy yesterday was identified as having a large gastric ulcer and a stricture at the distal portion of the stomach.? He also has a large phytobezoar in his stomach. He says that his abdominal pain is a lot better. He feels less bloated and less distended. He also is having bowel movements. Objective Data Objective Data Vital Signs: Vital Signs Temp Pulse Resp BP Pulse Ox O2 Del Method O2 Flow Rate 99.4 F H 71 16 108/67 90 Room Air 4 06/21/22 16:01 06/21/22 16:01 06/21/22 16:01 06/21/22 16:01 06/21/22 09:15 06/21/22 16:01 06/19/22 14:35 Oxygen Flow Rate (L/min) 4 Oxygen Delivery Method Room Air Weight: 138 lb 14.259 oz Body Mass Index (BMI) 20.2 Intake & Output: Intake and Output for Last 24 Hours 06/19/22 06/20/22 06/21/22 23:59 23:59 23:59 Intake Total 2387.67 / 2387.67 2640.16 / 2840.16 840 / 840 Output Total 450 / 450 150 / 150 Balance 2387.67 / 1937.67 2190.16 / 2390.16 690 / 690 Medical Nutrition Assessment Dietitian: Malnutrition Criteria Met Start: 06/19/22 12:22 Freq: Status: Active Protocol: Document 06/19/22 12:29 RMA (Rec: 06/19/22 12:29 RMA [id number]) Nutrition Malnutrition Evidence of Malnutrition Exists Yes Malnutrition (severe): Chronic Evidenced By Suboptimal Energy Intake ( Severe),Weight Loss (Severe), Physical Changes (Moderate) Intake Problem Inadequate Oral Intake Etiology related to altered GI function Signs/Symptoms as evidenced by NPO/pending EGD Status Active Problem Clinical Problem Chronic Disease or Condition Related Malnutrition Etiology Severe protein-calorie malnutrition in the context of chronic disease/debility related to inadequate oral intake Signs/Symptoms as evidenced by ~19% wt loss x 3 months, BMI 20.3, moderate muscle/fat wasting in the clavicle, orbital, temporal regions oral intake meeting less than 50% estimated nutrition needs x past 3-6 months, currently NPO Status Active Problem Recommendation Dietitian Recommendations/Changes Recommend advance diet as tolerated to Transitional with goal of Carbohydrate- Controlled diet given high blood glucose and HgbA1C. Liberalize diet as able to optimize oral intake and promote weight gain. Will provide Glucerna Shake as diet advanced for protein/ energy repletion. May need to consider enteral nutrition support if PO established inadequate to meet repletion needs. Lab / Micro Data Result Diagrams: 06/21/22 05:34 06/21/22 05:34 Labs: Laboratory Results - last 24 hr 06/20/22 17:55: POC Glucose 92 06/20/22 21:12: POC Glucose 87 06/21/22 05:34: WBC 6.0, RBC 2.85 L, Hgb 7.5 L, Hct 24.2 L, MCV 84.9, MCH 26.3 L, MCHC 31.0 L D, RDW Std Deviation 41.7, RDW Coeff of [place] 13.4, Plt Count 288, MPV 9.0, Immature Gran % (Auto) 1.200 H, Neut % (Auto) 73.8 H, Lymph % (Auto) 17.6 L, [place] % (Auto) 6.5, Eos % (Auto) 0.7, Baso % (Auto) 0.2, Absolute Neuts (auto) 4.5, Absolute Lymphs (auto) 1.06, Nucleated RBC % 0 06/21/22 05:34: Sodium 136, Potassium 3.3 L, Chloride 102, Carbon Dioxide 23.0, Anion Gap 11, BUN 9, Creatinine 0.76, Estim Creat Clear Calc 63.00, Est GFR (MDRD) Af Amer 130, Est GFR (MDRD) Non-Af 107, BUN/Creatinine Ratio 11.8, Glucose 88, Calcium 7.5 L, Triglycerides 109, Cholesterol 91, LDL Cholesterol 37, VLDL Cholesterol 22, HDL Cholesterol 32 L 06/21/22 05:35: Iron 15 L, TIBC 180 L, Iron Saturation 8.3 L, Ferritin 86 06/21/22 08:30: POC Glucose 114 H 06/21/22 11:52: POC Glucose 121 H Micro: Microbiology 06/18/22 13:00 Nasal Secretion SARS-CoV-2 Antigen (Rapid) - Final 06/18/22 11:05 Stool Stool Occult Blood (YANCY) - Final Occult Blood Positive Physical Exam Narrative Physical exam: General: Alert, Oriented x3, Cooperative, looks pale HEENT: Atraumatic Oral: Moist Mucosa Neck: Supple Lungs: Clear to auscultation Cardiovascular: HS I+II, regular, no murmurs Abdomen: Bowel Sounds Present, Soft, Non Tender Extremities: No edema Skin: No rashes, No breakdown Neurological: Grossly intact Psych/Mental Status: Appropriate Assessment & Plan Assessment/Plan (1) Gastric ulcer: PLAN: Recommend to continue PPI and Carafate therapy.? Await biopsies of gastric ulcer.? (2) Gastric hourglass stricture or stenosis: PLAN: He will need repeat evaluation of his upper GI tract. This can be done as an outpatient if he is tolerating a normal diet. (3) Gastric bezoar: PLAN: Continue a dark soda and digestive enzymes for phytobezoar. Charges/Coding Visit Charges Inpatient E&M: 49644 Subs Hosp L2
[2022-06-21 17:50] LABS: Bedside Glucose 147 mg/dL (74-106)
[2022-06-21] MEDS: Insulin Lispro 100 UNIT/ML INSULN.PEN SC (20:48)
[2022-06-21 21:16] LABS: Bedside Glucose 187 mg/dL (74-106)
[2022-06-22] VITALS (9 sets, daily range): BP systolic 101–138; BP diastolic 58–96; PULSE 72–91; RESP 16–18; TEMP 36.8–37.4; O2SAT 96–98
[2022-06-22] MEDS: Sucralfate 1 GM Tablet PO ×4 (05:34→21:58)
[2022-06-22 06:18] LABS: Absolute Lymphocyte Count 0.81 X10^3/uL (0.83-4.51); Absolute Neutrophil Count 4.4 X10^3/uL (2.0-7.7); Basophil# 0.01 X10^3/uL; Basophil% 0.2 % (0-1); Eosinophil# 0.03 X10^3/uL; Eosinophils% 0.5 % (0-5); Hematocrit 23.8 % (40-54); Hemoglobin 7.5 g/dL (13.0-16.5); Lymphocyte # 0.81 X10^3/ul (0.83-4.51); Lymphocyte % 14.3 % (19-41); Mean Corp Hgb Conc 31.5 g/dL (32-36); Mean Corpuscular Hgb 26.1 pg (27.0-32.0); Mean Corpuscular Volume 82.9 fL (80-94); Mean Platelet Vol. 8.7 fl (6.2-12.0); Monocyte# 0.39 X10^3/uL; Monocyte% 6.9 % (0-10); NRBC Flagged by Analyzer 0 % (0-5); Neutrophil # 4.38 X10^3/uL (2.7-7.7); Neutrophil % 77.2 % (47-70); Platelet Count 292 K/mm3 (150-450); RBC Distribution Width CV 13.3 % (11.6-14.6); RBC Distribution Width SD 40.1 fl (35.1-43.9); Red Blood Count 2.87 M/mm3 (4.6-6.2); White Blood Count 5.7 K/mm3 (4.4-11.0)
[2022-06-22 06:55] LABS: ALB/GLOB Ratio 0.5 RATIO (0.9-2.4); AST(SGOT) 16 U/L (15-37); Alanine Aminotransfer ALT/SGPT 9 U/L (16-61); Albumin, Serum 1.8 g/dL (3.2-5.0); Alkaline Phosphatase 72 U/L (45-117); Anion Gap 8 (5-15); BUN 7 mg/dL (7-18); BUN/Creat Ratio 8.6 RATIO (10-20); Calcium,Total 7.9 mg/dL (8.5-10.1); Chloride 104 mmol/L (98-107); Creatinine, Serum 0.81 mg/dL (0.70-1.30); EST Glomerular Filtration Rate 100 mL/min (>60); Est Glom Filt Rate - Afr Amer 121 mL/min (>60); Estimated Creatinine Clearance 77.78 ml/min; Globulin 3.3 g/dL (2.2-4.2); Glucose 145 mg/dL (74-106); Potassium 3.2 mmol/L (3.5-5.1); Protein, Total 5.1 g/dL (6.4-8.2); Sodium Level 138 mmol/L (136-145)
[2022-06-22] MEDS: Insulin Lispro 100 UNIT/ML INSULN.PEN 6 UNIT SC ×2 (08:50→11:36)
[2022-06-22] MEDS: Insulin Glargine-YFGN 100 UNIT/ML Pen 16 UNIT SC (08:50)
[2022-06-22] MEDS: Ondansetron 4 MG/2 ML Vial IV (08:53)
[2022-06-22] MEDS: 0.9% Saline Lock 10 ML Syringe IV (08:53)
--- NOTE | 2022-06-22 09:00 | PCM.PROGNOTE ---
Subjective Subjective He underwent an upper endoscopy was identified as having a large gastric ulcer and a stricture at the distal portion of the stomach.? He also has a large phytobezoar in his stomach. Objective Data Objective Data Vital Signs: Vital Signs Temp Pulse Resp BP Pulse Ox O2 Del Method O2 Flow Rate 98.5 F 72 18 103/68 98 Room Air 4 06/22/22 16:04 06/22/22 16:04 06/22/22 16:04 06/22/22 16:04 06/22/22 16:04 06/22/22 16:04 06/19/22 14:35 Oxygen Flow Rate (L/min) 4 Oxygen Delivery Method Room Air Weight: 138 lb 14.259 oz Body Mass Index (BMI) 20.2 Intake & Output: Intake and Output for Last 24 Hours 06/20/22 06/21/22 06/22/22 23:59 23:59 23:59 Intake Total 2640.16 / 2840.16 960 / 1080 390 / 390 Output Total 450 / 450 150 / 300 1000 / 1000 Balance 2190.16 / 2390.16 810 / 780 -610 / -610 Medical Nutrition Assessment Dietitian: Malnutrition Criteria Met Start: 06/19/22 12:22 Freq: Status: Active Protocol: Document 06/22/22 11:41 RMA (Rec: 06/22/22 11:41 RMA [id number]) Nutrition Malnutrition Evidence of Malnutrition Exists Yes Malnutrition (severe): Chronic Evidenced By Suboptimal Energy Intake ( Severe),Weight Loss (Severe), Physical Changes (Moderate) Intake Problem Inadequate Oral Intake Etiology related to altered GI function Signs/Symptoms as evidenced by full liquid diet Status Active Problem Clinical Problem Chronic Disease or Condition Related Malnutrition Etiology Severe protein-calorie malnutrition in the context of chronic disease/debility related to inadequate oral intake Signs/Symptoms as evidenced by ~19% wt loss x 3 months, BMI 20.3, moderate muscle/fat wasting in the clavicle, orbital, temporal regions oral intake meeting less than 50% estimated nutrition needs x past 3-6 months Status Active Problem Recommendation Dietitian Recommendations/Changes Recommend advance diet as tolerated to Transitional with goal of Carbohydrate- Controlled diet given high blood glucose and HgbA1C. Liberalize diet as able to optimize oral intake and promote weight gain. Will add 120 ml ensure plus high protein 4 times per day w / medpass for protein/energy repletion. Will add ensure pudding BID and 240 ml ensure clear w/ breakfast. Trend weights closely. Lab / Micro Data Result Diagrams: 06/22/22 05:39 06/22/22 05:39 Labs: Laboratory Results - last 24 hr 06/18/22 10:46: Crossmatch See Detail 06/21/22 11:52: POC Glucose 121 H 06/21/22 16:11: POC Glucose 147 H 06/21/22 20:47: POC Glucose 187 H 06/22/22 05:39: WBC 5.7, RBC 2.87 L, Hgb 7.5 L, Hct 23.8 L, MCV 82.9, MCH 26.1 L, MCHC 31.5 L, RDW Std Deviation 40.1, RDW Coeff of [place] 13.3, Plt Count 292, MPV 8.7, Immature Gran % (Auto) 0.900, Neut % (Auto) 77.2 H, Lymph % (Auto) 14.3 L, [place] % (Auto) 6.9, Eos % (Auto) 0.5, Baso % (Auto) 0.2, Absolute Neuts (auto) 4.4, Absolute Lymphs (auto) 0.81 L, Nucleated RBC % 0 06/22/22 05:39: Sodium 138, Potassium 3.2 L, Chloride 104, Carbon Dioxide 26.0, Anion Gap 8, BUN 7, Creatinine 0.81, Estim Creat Clear Calc 77.78, Est GFR (MDRD) Af Amer 121, Est GFR (MDRD) Non-Af 100, BUN/Creatinine Ratio 8.6 L, Glucose 145 H, Calcium 7.9 L, Total Bilirubin 0.30, AST 16, ALT 9 L, Alkaline Phosphatase 72, Total Protein 5.1 L, Albumin 1.8 L, Globulin 3.3, Albumin/Globulin Ratio 0.5 L 06/22/22 11:35: POC Glucose 211 H Micro: Microbiology 06/18/22 13:00 Nasal Secretion SARS-CoV-2 Antigen (Rapid) - Final 06/18/22 11:05 Stool Stool Occult Blood (YANCY) - Final Occult Blood Positive Physical Exam Narrative Physical exam: General: Alert, Oriented x3, Cooperative, looks pale HEENT: Atraumatic Oral: Moist Mucosa Neck: Supple Lungs: Clear to auscultation Cardiovascular: HS I+II, regular, no murmurs Abdomen: Bowel Sounds Present, Soft, Non Tender Extremities: No edema Skin: No rashes, No breakdown Neurological: Grossly intact Psych/Mental Status: Appropriate Assessment & Plan Assessment/Plan (1) Gastric bezoar: PLAN: .? Continue a dark soda and digestive enzymes for phytobezoar. (2) Gastric hourglass stricture or stenosis: PLAN: PLAN: He will need to undergo further dilation of the gastric stricture. (3) Gastric ulcer: PLAN: PLAN: Recommend to continue PPI and Carafate therapy.? Ae.
[2022-06-22] MEDS: Pantoprazole Sodium 40 MG Tablet PO ×2 (10:53→21:58)
[2022-06-22] MEDS: Potassium Chloride Oral Tablet 20 MEQ 60 MEQ PO (10:53)
[2022-06-22] MEDS: Empagliflozin 10 MG Tablet PO (10:54)
[2022-06-22] MEDS: Carvedilol 3.125 MG TABLET PO ×2 (10:54→21:58)
[2022-06-22] MEDS: Lisinopril 2.5 MG Tablet PO (10:54)
[2022-06-22] MEDS: Insulin Lispro 100 UNIT/ML INSULN.PEN SC (11:36)
[2022-06-22 11:55] LABS: Bedside Glucose 211 mg/dL (74-106)
[2022-06-22] MEDS: Ensure Plus High Protein 120 ML LIQUID PO (13:21)
--- NOTE | 2022-06-22 14:01 | CASEMGMT ---
Addendum entered by Zenia Martinez 06/22/22 14:14: Call back from daughter to [facility] psychiatric secretary and [facility]. [facility]erral sent to [facility] in [place] via [facility]. CM to follow. Sabrina DON CM Original Note: Call to daughter, Queenie, to see if she picked a [facility] agency yet. Queenie initially thinks she left list here but they her sig other states that it's in her bag a home. Daughter wants to know if she can call this RN CM back in the morning and daughter updated that physician had planned on discharging pt today, voices understanding and states will call CM back in about 15-20 minutes. CM to follow. Sabrina DON CM
--- NOTE | 2022-06-22 15:09 | DCINST_ITS ---
Discharge Instructions Diet Discharge Diet: No restrictions Activity Discharge Activity: Return to Normal Activity Follow Up Care Test Results: Test results from this visit will be discussed in further detail at your follow- up appointment, if applicable. Discharge Plan Admission Admit Date/Time: 06/18/22 19:38 Primary Reason for Your Visit: Acute GI bleed/gastric ulcer/Hypokalemia Attending Provider: Teena Kang Primary Care Provider: AWA WEBBER Consulting Providers: Binh Bauer ; Raquel Eubanks ; Deborah Jordan Instructions Additional Instructions / Restrictions: Take note of changes to your medications. Continue to take in diet soda Follow-up with gastroenterology within 2 weeks. Follow-up with your PCP within 1 week. Discharge Orders/Prescriptions Prescriptions: New sucralfate 1 gram Tablet 1 g PO 1HR_ACHS 30 Days Qty: 90 0RF carvedilol 3.125 mg Tablet 3.125 mg PO BID 30 Days Qty: 60 0RF pantoprazole 40 mg Tablet,Delayed Release (Dr/Ec) 40 mg PO BID 30 Days Qty: 60 0RF lisinopril 2.5 mg Tablet 2.5 mg PO DAILY 30 Days Qty: 30 0RF insulin lispro [Humalog KwikPen Insulin] 100 unit/mL Insulin Pen 6 unit subcut TIDAC 30 Days Qty: 5.4 0RF Jardiance 10 mg Tablet 10 mg PO DAILY 30 Days Qty: 30 0RF Ensure Plus High Protein 0.08 gram-1.5 kcal/mL Liquid 120 ml PO 4X/DAY 30 Days Qty: 120 0RF insulin glargine-yfgn 100 unit/mL (3 mL) Insulin Pen 16 unit subcut DAILY 30 Days Qty: 4.8 0RF ferrous sulfate 325 mg (65 mg iron) tablet 325 mg PO DAILY 30 Days Qty: 30 0RF (DME) pen needle, diabetic [Pen Needle] 31 gauge x 1/4 needle See Rx Instructions .ROUTE .MEDSUPPLY Qty: 50 0RF Rx Instructions: As directed Other Ambulatory Orders: Glucometer (Routine) Timeframe: 1 Day Location: Determined by Patient Ordered By: Dr. Teena Kang Referrals / Follow Up: Deejay Claudio DO [Med Staff - Active Staff] - Within 2 Weeks Care Physician,No Primary [Non-Staff] - Charley Carey NP-C [Non-Staff -Ordering Privileges] - 07/21/22 8:30 am Raquel Eubanks MD [Med Staff - Active Staff] - Within 1 Month Disposition Disposition (needs filled in before D/C Order can be placed): Home Health Service
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
[2022-06-22 17:00] LABS: Bedside Glucose 140 mg/dL (74-106)
[2022-06-23 00:05] LABS: Bedside Glucose 112 mg/dL (74-106)
[2022-06-23 03:00] VITALS: PULSE 83
[2022-06-23 04:08] VITALS: BP 135/91; PULSE 83; RESP 16; TEMP 37; O2SAT 94
[2022-06-23 04:12] VITALS: BP 135/91; PULSE 83; RESP 16; TEMP 37; O2SAT 94
[2022-06-23] MEDS: Sucralfate 1 GM Tablet PO ×2 (06:30→10:03)
[2022-06-23 07:00] VITALS: PULSE 73
[2022-06-23 08:48] LABS: Absolute Lymphocyte Count 1.42 X10^3/uL (0.83-4.51); Absolute Neutrophil Count 4.2 X10^3/uL (2.0-7.7); Basophil# 0.02 X10^3/uL; Basophil% 0.3 % (0-1); Eosinophil# 0.05 X10^3/uL; Eosinophils% 0.8 % (0-5); Hematocrit 25.5 % (40-54); Hemoglobin 8.2 g/dL (13.0-16.5); Lymphocyte # 1.42 X10^3/ul (0.83-4.51); Lymphocyte % 22.5 % (19-41); Mean Corp Hgb Conc 32.2 g/dL (32-36); Mean Corpuscular Hgb 26.3 pg (27.0-32.0); Mean Corpuscular Volume 81.7 fL (80-94); Mean Platelet Vol. 8.4 fl (6.2-12.0); Monocyte# 0.53 X10^3/uL; Monocyte% 8.4 % (0-10); NRBC Flagged by Analyzer 0 % (0-5); Neutrophil # 4.24 X10^3/uL (2.7-7.7); Neutrophil % 67.2 % (47-70); Platelet Count 304 K/mm3 (150-450); RBC Distribution Width CV 13.4 % (11.6-14.6); RBC Distribution Width SD 39.5 fl (35.1-43.9); Red Blood Count 3.12 M/mm3 (4.6-6.2); White Blood Count 6.3 K/mm3 (4.4-11.0)
[2022-06-23] MEDS: Insulin Lispro 100 UNIT/ML INSULN.PEN 6 UNIT SC (08:54)
[2022-06-23] MEDS: Carvedilol 3.125 MG TABLET PO (08:56)
[2022-06-23] MEDS: Pantoprazole Sodium 40 MG Tablet PO (08:57)
[2022-06-23] MEDS: Empagliflozin 10 MG Tablet PO (08:57)
[2022-06-23] MEDS: Lisinopril 2.5 MG Tablet PO (08:57)
[2022-06-23] MEDS: Insulin Glargine-YFGN 100 UNIT/ML Pen 16 UNIT SC (08:58)
[2022-06-23 09:16] LABS: ALB/GLOB Ratio 0.5 RATIO (0.9-2.4); AST(SGOT) 10 U/L (15-37); Alanine Aminotransfer ALT/SGPT 9 U/L (16-61); Albumin, Serum 1.8 g/dL (3.2-5.0); Alkaline Phosphatase 79 U/L (45-117); Anion Gap 7 (5-15); BUN 6 mg/dL (7-18); Calcium,Total 8.1 mg/dL (8.5-10.1); Chloride 105 mmol/L (98-107); Creatinine, Serum 0.75 mg/dL (0.70-1.30); EST Glomerular Filtration Rate 109 mL/min (>60); Est Glom Filt Rate - Afr Amer 132 mL/min (>60); Globulin 3.6 g/dL (2.2-4.2); Glucose 104 mg/dL (74-106); Potassium 3.5 mmol/L (3.5-5.1); Protein, Total 5.4 g/dL (6.4-8.2); Sodium Level 137 mmol/L (136-145)
--- NOTE | 2022-06-23 09:19 | CASEMGMT ---
Several C agencies states unable to accept. Referral also sent to [facility], , [facility] and [facility]. CM to follow. Sabrina DON CM
[2022-06-23 09:20] LABS: Bedside Glucose 106 mg/dL (74-106)
[2022-06-23 09:49] VITALS: BP 135/91; PULSE 83; RESP 16; TEMP 37; O2SAT 94
[2022-06-23] MEDS: 0.9% Saline Lock 10 ML Syringe IV (10:06)
--- NOTE | 2022-06-23 10:19 | CASEMGMT ---
Addendum entered by Zenia Martinez 06/23/22 11:10: Unable to set up HHC at this time due to lack of PCP. Family aware and will f/u at new PCP appt. Sabrina DON CM Addendum entered by Zenia Martinez 06/23/22 11:00: Per [facility], they cannot accept pt until pt has seen new PCP and they will then need to re-order HHC. Daughter and granddaughter updated and voice understanding. Granddaughter provided HHC info. Daughter/granddaughter voice no further questions/concerns/needs. Pt to be discharged with granddaughter. Sabrina DON CM Addendum entered by Zenia Martinez 06/23/22 10:32: Per daughter, she is unable to set up PCP appt as she does not have pt's insurance info. Pt ok with this FLORENCIA CAMPOS calling to schedule appt 'whereever she(daughter)wants me to go.' Call to [facility] physician office in [place] at [phone] to schedule appt and provide insurance info. Appt scheduled for 06/28/22 at 1pm with Gavi STEWART. Daughter updated and placed on chart. Sabrina DON CM Original Note: Call to daughter to see if she has set up appt for pt at [facility] physician office in [place] and she states she will call right now and make appt. Advised daughter that pt cannot have HHC set up until he has a PCP, voices understanding. Daughter states pt's granddaughter will be here in about 20 minutes to pick pt up. [facility], [facility], and [facility] all are unable to [facility] pt. [facility] is interested but needs to know who PCP would be and this was provided. Call to [facility] pharmacy and they are aware to bring meds to room. CM to follow. Sabrina DON CM
--- NOTE | 2022-06-23 10:20 | CASEMGMT ---
CORRIE called Chris with Adult Protective Services and left her a voice mail letting her know patient will be going to stay with his daughter in [place], [place] which is [facility]. Vickie Thompson STILL CLEANERLynn GALDAMEZ
[2022-06-23 11:50] LABS: Bedside Glucose 144 mg/dL (74-106)
--- NOTE | 2022-06-23 12:52 | PHA.DC.MR ---
Pharmacy Service has performed discharge medication reconciliation for this patient. The patient's discharge medication list was reviewed for discrepancies and discrepancies were resolved. Medication education papers prepared, patient discharged before I was able to probation counselor. Home Medications carvedilol 3.125 mg tablet 3.125 mg PO BID 30 days #60 tabs 06/22/22 empagliflozin 10 mg tablet (Jardiance) 10 mg PO DAILY 30 days #30 tabs 06/22/22 ferrous sulfate 325 mg (65 mg iron) tablet 325 mg PO DAILY 30 days #30 tabs 06/22/22 food supplemt, lactose-reduced 0.08 gram-1.5 kcal/mL oral liquid (Ensure Plus High Protein) 120 ml PO 4X/DAY 30 days #120 mL 06/22/22 insulin glargine-yfgn 100 unit/mL (3 mL) subcutaneous pen 16 unit (0.16 mL) subcut DAILY 30 days #4.8 mL 06/22/22 insulin lispro 100 unit/mL subcutaneous pen (Humalog KwikPen (U-100) Insulin) 6 unit (0.06 mL) subcut TIDAC 30 days #5.4 mL 06/22/22 lisinopril 2.5 mg tablet 2.5 mg PO DAILY 30 days #30 tabs 06/22/22 pantoprazole 40 mg tablet,delayed release 40 mg PO BID 30 days #60 tabs 06/22/22 pen needle, diabetic 31 gauge x 1/4 (Pen Needle) #50 ea 06/22/22 sucralfate 1 gram tablet 1 g PO 1HR_ACHS 30 days #90 tabs 06/22/22
--- NOTE | 2022-06-25 15:13 | CASEMGMT ---
Addendum entered by Michela Mackenzie 06/25/22 16:11: TC from Ciera with [facility] at [id number]. Ciera stated she spoke with Queenie, pt's dtr, Queenie, sounded overwhelmed. Queenie stated she didn't understand why the doctor Ordered two different insulins. Ciera explained that Queenie said her father is eating and drinking whatever he wants. Ciera said she did speak with the floor nurse. Pt received DC instructions with the updated medications. Ciera wanted to make sure everyone was on the same page. She will call Queenie back and advise to follow DC instructions. The PCP will meet with pt on Tuesday and review any concerns. Ciera will advise dtr should bring pt to ED if concerned. Original Note: TC to Ciera with [facility]. Ciera was not available. Staff took down Complex Transfer Table Operator's name and phone contact. Ciera to return Navigator's call.
== END 2022-06-23 11:36 | disposition home health service (06) | DRG 377 ==
LOC: ED 19:13 → PCU 19:31
PROVIDERS: Emergency Medicine; Internal Medicine; Internal Medicine Gastroenterology; Admitting Provider Family Medicine; Emergency Provider Emergency Medicine; Visit Provider Internal Medicine
PROC: 0DJ08ZZ Inspection of Upper Intestinal Tract, Via Natural or Artificial Opening Endoscopic (ICD-10-PCS; CPT 43235; principal; 2022-06-19 13:15)
DX: K25.4 Chronic or unspecified gastric ulcer with hemorrhage (principal); E43 Unspecified severe protein-calorie malnutrition; I42.9 Cardiomyopathy, unspecified; D62 Acute posthemorrhagic anemia; K31.1 Adult hypertrophic pyloric stenosis; T76.01XA Adult neglect or abandonment, suspected, initial encounter; T18.2XXA Foreign body in stomach, initial encounter; K31.84 Gastroparesis; E11.43 Type 2 diabetes mellitus with diabetic autonomic (poly)neuropathy; K22.11 Ulcer of esophagus with bleeding; I48.91 Unspecified atrial fibrillation; E11.65 Type 2 diabetes mellitus with hyperglycemia; E78.00 Pure hypercholesterolemia, unspecified; K44.9 Diaphragmatic hernia without obstruction or gangrene; I10 Essential (primary) hypertension; E87.6 Hypokalemia; I25.2 Old myocardial infarction; F41.9 Anxiety disorder, unspecified; R09.02 Hypoxemia; F32.A Depression, unspecified; Z87.891 Personal history of nicotine dependence; Z20.822 Contact with and (suspected) exposure to COVID-19; Z68.20 Body mass index [BMI] 20.0-20.9, adult
CPT/HCPCS: 36415; 71045; 80048; 80053; 80061; 82274; 82728; 82962; 83036; 83540; 83550; 83735; 84100; 84443; 85014; 85018; 85025; 85610; 85730; 86850; 86900; 86901; 86920; 87811; 88305; 88342; 93005; 93306; 97110; 97116; 97162; 97166; 97530; 97535; 97802; 97803; 99285; J7030; J7040; J7050; Q9957; A4216; J2405; J2916; J3490